=== PATIENT | male | born 1945 | race Caucasian/White ===

== ENCOUNTER 2016-12-17 12:21 | Day surgery (SDC) | payer OTHER ==
[2016-12-17 12:44] VITALS: RESP 16; TEMP 97.9
[2016-12-17 13:57] VITALS: BP 134/78; PULSE 90
--- NOTE | 2016-12-17 14:20 | US ---
EXAMINATION TYPE: US FNA thyroid DATE OF EXAM: 12/17/2016 1:58 PM COMPARISON: NONE HISTORY: Thyroid nodule, E04.1 Maximal barrier technique was utilized. Ultrasound using sterile technique. The skin overlying the no dule was localized with ultrasound and the overlying skin prepped and draped. Lidocaine used for loca l anesthesia. 5 passes with a 25-gauge needle were made into the nodule under ultrasound guidance. As pirate specimen submitted to cytology. Following the procedure hemostasis achieved. No immediate comp lication IMPRESSION: Status post ultrasound-guided fine-needle aspiration of thyroid nodule, pathology pending .
== END 2016-12-17 14:07 | disposition home or self-care (01) ==
LOC: RADPROMAIN 12:21
PROVIDERS: ATTEND Otolaryngology
DX: E04.1 Nontoxic single thyroid nodule (principal)
CPT/HCPCS: 10022; 76942; 88173; 88305

== ENCOUNTER 2017-10-07 07:00 | Emergency (ER) | payer OTHER ==
[2017-10-07 07:10] VITALS: RESP 16
--- NOTE | 2017-10-07 08:18 | ED ---
General Adult HPI - General Chief complaint: Dental/Oral Stated complaint: dental pain Time Seen by Provider: 10/07/17 08:07 Source: patient, RN notes reviewed Mode of arrival: ambulatory Limitations: no limitations - History of Present Illness Initial comments: 71 yo male presents to the emergency department with a chief complaint of swelling to the right lower jawline. Patient states that this started this morning. He is currently undergoing dental work to have dentures placed. He states that he has had a nausea vomiting. He is currently on amoxicillin for some dental work that he had done. He states that he was concerned due to swelling. He does have pain medication at home and is helping with the pain. He states he has not felt feverish but he did have a fever when they checked out front. He states is not currently having any other symptoms at this time. He was concerned due to his swelling and he thought that he should be seen. He was also concerned due to swelling. He denies any radiation into the neck. Patient denies any recent fever, chills, shortness of breath, chest pain, back pain, abdominal pain, nausea vomiting, numbness or tingling, dysuria or hematuria, constipation or diarrhea, headaches or visual changes, or any other current symptoms. - Related Data Home Medications Medication Instructions Recorded Confirmed Saw Piercy 667 mg PO DAILY 02/18/16 12/17/16 Aspirin 81 mg PO DAILY 12/06/16 12/17/16 Multivitamin with Iron 1 each PO DAILY 12/06/16 12/17/16 [Multivitamins with Iron] Urania-3 Fatty Acids/Fish Oil [Fish 1 each PO DAILY 12/06/16 12/17/16 Oil 1,000 mg Softgel] Simvastatin [Zocor] 20 mg PO HS 12/06/16 12/17/16 Previous Rx's Medication Instructions Recorded Clindamycin [Cleocin] 450 mg PO Q8HR #90 capsule 10/07/17 Allergies Allergy/AdvReac Type Severity Reaction Status Date / Time No Known Allergies Allergy Verified 10/07/17 07:10 Review of Systems ROS Statement: Those systems with pertinent positive or pertinent negative responses have been documented in the HPI. ROS Other: All systems not noted in ROS Statement are negative. Past Medical History Past Medical History: Cancer, Hyperlipidemia, Prostate Disorder Additional Past Medical History / Comment(s): hx. skin cancer, recent MRI to evaluate episodes of leg weakness recently that appear, then hard to walk for short time History of Any Multi-Drug Resistant Organisms: None Reported Past Surgical History: Hernia Repair Additional Past Surgical History / Comment(s): thyroid biopsy, sinus surgery Past Anesthesia/Blood Transfusion Reactions: No Reported Reaction Past Psychological History: No Psychological Hx Reported Smoking Status: Current every day smoker Past Alcohol Use History: Occasional Past Drug Use History: None Reported - Past Family History Mother Family Medical History: Cancer Father Family Medical History: Cancer General Exam Limitations: no limitations General appearance: alert, in no apparent distress Eye exam: Present: normal appearance, PERRL, EOMI. Absent: scleral icterus, conjunctival injection, periorbital swelling ENT exam: Present: other (Patient is swelling of the right lower jawline. There is erythema to the jawline however there is no visible abscess noted.) Neck exam: Present: normal inspection. Absent: tenderness, meningismus, lymphadenopathy Respiratory exam: Present: normal lung sounds bilaterally. Absent: respiratory distress, wheezes, rales, rhonchi, stridor Cardiovascular Exam: Present: regular rate, normal rhythm, normal heart sounds. Absent: systolic murmur, diastolic murmur, rubs, gallop, clicks Neurological exam: Present: alert, oriented X3, CN II-XII intact Psychiatric exam: Present: normal affect, normal mood Skin exam: Present: warm, dry, intact, normal color. Absent: rash Course Vital Signs 10/07/17 07:03 Temperature 100.1 F H Pulse Rate 94 Respiratory 16 Rate Blood Pressure 158/74 O2 Sat by Pulse 97 Oximetry Medical Decision Making - Medical Decision Making 71-year-old male presents for what appears to be a right-sided dental pain. At This time no visible abscess is noted. we will start patient clindamycin. We discussed stopping the amoxicillin. We discussed close follow-up with his dentist. He does have narcotics at home to help with his pain. We discussed return parameters and all patient's questions. He stated that he understood and he is agreement this plan. All questions have been answered. He will be discharged. Disposition Clinical Impression: Dental caries Disposition: HOME SELF-CARE Condition: Stable Instructions: Dental Caries (ED) Additional Instructions: Please use medication as discussed. Please follow up with family doctor if symptoms have not improved over the next two days. Please return to the emergency room if your symptoms increase or worsen or for any other concerns. Prescriptions: Clindamycin [Cleocin] 450 mg PO Q8HR #90 capsule Referrals: James Meeks DO [Primary Care Provider] - 1-2 days Time of Disposition: 08:18
[2017-10-07 08:28] VITALS: BP 136/84; PULSE 86; TEMP 99
== END 2017-10-07 08:32 | disposition home or self-care (01) ==
LOC: EC 07:00
DX: K02.9 Dental caries, unspecified (principal); R22.0 Localized swelling, mass and lump, head; R11.2 Nausea with vomiting, unspecified; E78.5 Hyperlipidemia, unspecified; N42.9 Disorder of prostate, unspecified; F17.200 Nicotine dependence, unspecified, uncomplicated; Z79.82 Long term (current) use of aspirin; Z79.899 Other long term (current) drug therapy
CPT/HCPCS: 99282

== ENCOUNTER → 2017-10-24 | Outpatient (CLI) | payer OTHER ==
--- NOTE | 2017-10-24 11:33 | US ---
EXAMINATION TYPE: US thyroid st tissue head/neck DATE OF EXAM: 10/24/2017 COMPARISON: US CLINICAL HISTORY: E04.1 Thyroid Nodule. GLAND SIZE: Right Lobe: 5.2 x 2.9 x 1.6 cm Overall Parenchyma: heterogenous Left Lobe: 5.1 x 2.3 x 1.7 cm Overall Parenchyma: heterogeneous Isthmus Thickness: 0.3 cm NODULES RIGHT: # of nodules measured on right: 3 1. 2.6 X 1.8 x 1.2 cm isoechoic mixed nodule at the upper pole with well-defined margins. This nod ule is wider than tall and shows intranodular vascularity. Prior size: 2.3 x 1.4 x 1.6 cm 2. 1.6 X 1.2 x 0.8 cm hypoechoic mixed nodule at the mid medial pole with well-defined margins; pres ent with microcalcifications. This nodule is wider than tall and shows intranodular vascularity. Prior size: 1.5 x 1.5 x 0.6 cm 3. 1.5 X 1.2 x 0.7 cm hypoechoic solid nodule at the mid lateral pole with well-defined margins. Th is nodule is wider than tall and shows intranodular vascularity. Prior size: 1.2 x 1.1 x 0.9 cm LEFT: # of nodules measured on left: 3 1. 2.2 X 1.7 x 1.5 cm isoechoic mixed nodule at the upper pole with well-defined margins; present w ith microcalcifications. This nodule is wider than tall and shows intranodular vascularity. Prior size: 2.4 x 1.6 x 1.7 cm 2. 1.2 X 0.9 x 0.8 cm hypoechoic mixed nodule at the mid pole with poorly defined margins. This nod ule is wider than tall and shows no intranodular vascularity. Prior size: 1.1 x 0.8 x 0.9 cm 3. 0.9 X 0.6 x 0.9 cm hypoechoic mixed nodule at the lower pole with poorly defined margins; present with microcalcifications. This nodule is taller than wide and shows no intranodular vascularity. Prior size: no prior ISTHMUS: # of nodules measured in the isthmus: 1 1. 0.5 X 0.4 x 0.2 cm hypoechoic mixed nodule at the lower left pole with well-defined margins. Th is nodule is wider than tall and shows intranodular vascularity. Prior size: not seen Bilateral neck scanned: inferior and medial to right thyroid gland is hyperechoic, oval, solid nodule = 0.4 x 0.6 x 0.6cm, and inferior to left thyroid is oval hyperechoic oval solid nodule = 0.7 x 0.6 x 0.3cm. These likely represent nonenlarged lymph nodes and are hyperechoic. IMPRESSION: Minimal increase in growth in the right upper pole nodule, newly identified subcentimeter left thyroi d nodule, and clearly identified subcentimeter isthmic nodule in a multinodular goiter. The right upp er pole thyroid nodule does meet size criteria for fine-needle aspiration although continued surveill ance could be performed in this patient with a recent left-sided thyroid biopsy. Alternatively [facility] thyroid scan could be performed to evaluate for cold nodule.
== END | disposition home or self-care (01) ==
LOC: RADUSWWP 09:39
DX: E04.2 Nontoxic multinodular goiter (principal)
CPT/HCPCS: 76536

== ENCOUNTER → 2017-11-14 | Outpatient (CLI) | payer OTHER ==
--- NOTE | 2017-11-15 08:38 | MR ---
EXAMINATION TYPE: MR brain wo/w con DATE OF EXAM: 11/14/2017 COMPARISON: NONE HISTORY: Lightheaded, dizziness TECHNIQUE: Multiplanar, multisequence images of the brain and brainstem is performed without and with IV contras t, utilizing 7 mL intravenous Gadavist . FINDINGS: Diffusion weighted images demonstrate no evidence of a recent infarct or other diffusion ab normality. There are changes of chronic sinusitis particularly involving the ethmoid air cells. Mild to moderate generalized degenerative change. No midline shift or mass effect. No cerebellopontine angle mass. Sella turcica has a normal appearance. Craniocervical junction mainta ined. Within the posterior nasopharynx there is a mucosal lesion which does not meet the criteria of a simp le cyst measuring 8 mm. White matter: There are approximately 20 focal areas of abnormal signal scattered throughout the white matter bilat erally. No lesions perpendicular to ventricular system. No enhancing lesions. No callosal lesions. All lesions measure less than 5 mm. IMPRESSION: 1. Nonspecific white matter changes as discussed above. Differential diagnosis would include remote m icrovascular ischemia. Demyelinating processes not excluded. 2. Changes of chronic sinusitis with an 8 mm mucosal lesion involving the posterior nasopharynx which does not meet the criteria of a simple cyst. Recommend ENT consultation.
== END | disposition home or self-care (01) ==
LOC: RADMRIMAIN 13:40
PROVIDERS: ATTEND Psychiatry & Neurology Neurology
DX: R90.82 White matter disease, unspecified (principal)
CPT/HCPCS: 82565; 70553; 36415; A9581

== ENCOUNTER 2017-12-06 12:06 | Day surgery (SDC) | payer OTHER ==
[2017-12-06 12:42] VITALS: RESP 16; TEMP 97.6
[2017-12-06 13:52] VITALS: BP 146/74; PULSE 68
--- NOTE | 2017-12-06 14:05 | US ---
ULTRASOUND GUIDED FNA THYROID BIOPSY: CLINICAL HISTORY: Request for 3 right-sided thyroid nodules FINDINGS: The procedure was explained to the patient. The risks, complications, benefits and alternatives were discussed and any questions were answered. Informed consent was obtained. Patient was placed supin e on the ultrasound table and prepped and draped in the usual sterile fashion. Utilizing a 25 gauge needle, five passes were made into the each of the 3 requested right thyroid nodules. Patient was stable throughout the procedure. Pathology is pending. All elements of maximal barrier technique were utilized. IMPRESSION: 1. Successful ultrasound guided FNA thyroid biopsy.
== END 2017-12-06 13:50 | disposition home or self-care (01) ==
LOC: RADPROMAIN 12:06
PROVIDERS: ATTEND Physician Assistant
DX: E04.1 Nontoxic single thyroid nodule (principal)
CPT/HCPCS: 10022; 36415; 76942; 88173; 88305

== ENCOUNTER → 2017-12-14 | Outpatient (CLI) | payer OTHER ==
--- NOTE | 2017-12-14 17:00 | ECHOF ---
Referral Reason:R42 Lightheadedness MEASUREMENTS -------- HEIGHT: 177.8 cm WEIGHT: 72.1 kg BP: 179/82 RVIDd: 3.4 cm (< 3.3) IVSd: 1.2 cm (0.6 - 1.1) LVIDd: 3.3 cm (3.9 - 5.3) LVPWd: 1.1 cm (0.6 - 1.1) IVSs: 1.5 cm LVIDs: 2.0 cm LVPWs: 1.4 cm LAESV Index (A-L): 22.46 ml/m Ao Diam: 3.6 cm (2.0 - 3.7) AV Cusp: 1.9 cm (1.5 - 2.6) LA Diam: 3.0 cm (2.7 - 3.8) MV EXCURSION: 18.395 mm (> 18.000) MV EF SLOPE: 104 mm/s (70 - 150) EPSS: 0.7 cm MV E Jak: 0.77 m/s MV DecT: 371 ms MV A Jak: 0.76 m/s MV E/A Ratio: 1.01 AR PHT: 426 ms RAP: 5.00 mmHg RVSP: 32.27 mmHg FINDINGS -------- Sinus rhythm. This was a technically adequate study. The left ventricular size is normal. There is mild concentric left ventricular hypertrophy. Overa ll left ventricular systolic function is normal with, an EF between 55 - 60 %. The right ventricle is mildly enlarged. Normal LA size by volume 22+/-6 ml/m2. RA appears enlarged. Aortic valve is trileaflet and is mildly thickened. There is ivkk-ao-bbmeeesq aortic regurgitation. There is no evidence of aortic stenosis. The mitral valve leaflets are mildly thickened. There is trace mitral regurgitation. Trace tricuspid regurgitation present. There is borderline pulmonary hypertension. The right vent ricular systolic pressure, as measured by Doppler, is 32.27mmHg. Trace/mild (physiologic) pulmonic regurgitation. The aortic root size is normal. Normal inferior vena cava with normal inspiratory collapse consistent with estimated right atrial pre ssure of 5 mmHg. There is no pericardial effusion. CONCLUSIONS -------- 1. Sinus rhythm. 2. This was a technically adequate study. 3. The left ventricular size is normal. 4. There is mild concentric left ventricular hypertrophy. 5. Overall left ventricular systolic function is normal with, an EF between 55 - 60 %. 6. The right ventricle is mildly enlarged. 7. Normal LA size by volume 22+/-6 ml/m2. 8. RA appears enlarged. 9. Aortic valve is trileaflet and is mildly thickened. 10. There is bxbg-jt-kofjywel aortic regurgitation. 11. The mitral valve leaflets are mildly thickened. 12. There is trace mitral regurgitation. 13. Trace tricuspid regurgitation present. 14. There is borderline pulmonary hypertension. 15. The right ventricular systolic pressure, as measured by Doppler, is 32.27mmHg. 16. Trace/mild (physiologic) pulmonic regurgitation. 17. The aortic root size is normal. 18. There is no pericardial effusion. MOLD CLAMPER: Oscar Rivera RDCS
--- NOTE | 2017-12-16 07:26 | US ---
EXAMINATION TYPE: US carotid duplex BILAT DATE OF EXAM: 12/14/2017 COMPARISON: NONE CLINICAL HISTORY: R42 Dizziness and giddiness. episodes of not being able to get words out, lighthead edness EXAM MEASUREMENTS: RIGHT: Peak Systolic Velocity (PSV) cm/sec ----- Right CCA: 98.0 ----- Right ICA: 92.1 ----- Right ECA: 133.0 ICA/CCA ratio: 0.9 RIGHT: End Diastole cm/sec ----- Right CCA: 29.8 ----- Right ICA: 31.5 ----- Right ECA: 17.7 LEFT: Peak Systolic Velocity (PSV) cm/sec ----- Left CCA: 93.3 ----- Left ICA: 85.2 ----- Left ECA: 91.0 ICA/CCA ratio: 0.9 LEFT: End Diastole cm/sec ----- Left CCA: 24.9 ----- Left ICA: 22.4 ----- Left ECA: 13.9 VERTEBRALS (direction of flow): Right Vertebral: Antegrade Left Vertebral: Antegrade Rhythm: Normal IMPRESSION: mild heterogeneous plaque seen on the right, no stenosis seen Criteria for Assigning % of Stenosis / Diameter reduction (Estimation based on the indirect measurements of the internal carotid artery velocities (ICA PSV). 1. Normal (no stenosis)=ICA PSV < 125 cm/s: ratio < 2.0: ICA EDV<40 cm/s. 2. Less than 50% stenosis=ICA PSV < 125 cm/s: ratio < 2.0: ICA EDV<40 cm/s. 3. 50 to 69% stenosis=ICA PSV of 125 to 230 cm/s: ration 2.0 ? 4.0: ICA EDV 40-100 cm/s. 4. Greater than 70% stenosis to near occlusion= ICA PSV > 230 cm/s: ratio > 4.0: ICA EDV > 100 cm/s. 5. Near occlusion= ICA PSV velocities may be low or undetectable: variable ratio and ICA EDV. 6. Total occlusion=unable to detect flow.
--- NOTE | 2017-12-26 14:33 | HM ---
HOLTER MONITOR REPORT CLINICAL INFORMATION: Patient was monitored for 24 hours. The baseline rhythm is a sinus mechanism with normal conduction. The average rate 80 beats per minute, minimum of 57, maximum 118 beats per minute. Ventricular ectopic activity was present in the form of rare single PVCs. Supraventricular ectopic activity was present in the form of rare single PACs. Symptoms of wooziness correlated with sinus mechanism. CONCLUSION: 1. Sinus mechanism baseline rhythm. 2. Rare ventricular ectopic activity. 3. Rare supraventricular ectopic activity. 4. Symptoms correlated with sinus mechanism. MMODL / IJN: [id number] /
== END | disposition home or self-care (01) ==
LOC: RADECHMAIN 12:09
PROVIDERS: ATTEND Physician Assistant
DX: I08.0 Rheumatic disorders of both mitral and aortic valves (principal); I65.21 Occlusion and stenosis of right carotid artery; R42 Dizziness and giddiness
CPT/HCPCS: 10022; 93225; 93226; 93306; 93880

== ENCOUNTER 2018-01-05 11:02 | Day surgery (SDC) | payer OTHER ==
[2017-12-30 11:23] VITALS: BMI 22.6
[~2018-01-05 11:02] MED LIST: DEXAMETHASONE SOD PHOSPHATE 10 MG/ML 1 ML VIAL IV ONE; FAMOTIDINE 20 MG/2 ML VIAL IV ONE; HYDROmorphone 0.5 MG/0.5 ML SYRINGE IVP PRN; LACTATED RINGERS 1,000 ML IV SCH; ONDANSETRON 4 MG/2 ML VIAL IVP ONE
[2018-01-05] MEDS: OXYMETAZOLINE 0.05% NASL SPRAY 1 SPRAY BOTTLE NASAL ONE ×5 (11:30→11:51)
[2018-01-05 11:33] VITALS: RESP 16
[2018-01-05] MEDS ORDERED: LIDOCAINE 1% 20 ML VIAL (10MG/ML) FOR IV START INTRADERMA ONE (11:42)
[2018-01-05] MEDS ORDERED: LIDOCAINE 1%-EPI 1:100,000 20 ML VIAL SQ ONE (13:03)
[2018-01-05] MEDS ORDERED: BUPIVACAINE (PF) 0.5% 30 ML VIAL SQ ONE (13:03)
[2018-01-05] MEDS ORDERED: fentaNYL (PF) 50 MCG/ML 2 ML AMP ONE (13:11)
[2018-01-05] MEDS ORDERED: DEXAMETHASONE SOD PHOS (MDV) 100 MG/10 ML VIAL ONE (13:11)
[2018-01-05] MEDS ORDERED: PROPOFOL 10 MG/ML 20 ML VIAL IV ONE (13:11)
[2018-01-05] MEDS ORDERED: MIDAZOLAM 2 MG/2 ML VIAL ONE (13:11)
[2018-01-05] MEDS ORDERED: SUCCINYLCHOLINE CHLORIDE 100 MG/5 ML SYR IV ONE (13:11)
[2018-01-05] MEDS ORDERED: LIDOCAINE 1% INJ 10MG/ML (20 ML MDV) ONE (13:11)
[2018-01-05] MEDS ORDERED: EPINEPHrine 1 MG/ML (MDV) 30 ML VIAL TOPICAL ONE (13:28)
[2018-01-05] MEDS ORDERED: FLUORESCEIN STRIPS 1 MG STRIP MISCELLANE ONE (13:28)
--- NOTE | 2018-01-05 13:55 | P.OP ---
Date of Procedure: 01/05/18 Preoperative Diagnosis: Nasopharyngeal mass/cystic Postoperative Diagnosis: same Procedure(s) Performed: Endoscopic biopsy/removal of nasopharyngeal mass/cyst Anesthesia: LEODANA Surgeon: Ravindra Pelletier Estimated Blood Loss (ml): 5 Pathology: other (nasopharynx) Disposition: PACU Indications for Procedure: Presented the office originally for a thyroid evaluation. The patient had a needle biopsy demonstrating a [place] four category and thyroidectomy was recommended. Lined surgery and wished to continue surveillance even though he understood the risk of thyroid cancer area nevertheless, during this evaluation and treatment we discovered a nasopharyngeal mass and biopsy was recommended. All risks, benefits, and alternative therapies were discussed. Consent was obtained and all questions were answered. Operative Findings: Nasopharyngeal cystic mass Description of Procedure: This patient was placed in the supine position a general inhalation anesthetic was administered to the patient by mask and subsequently intubated with a cuffed endotracheal tube by the department of anesthesia with a functioning IV line in place. The patient was monitored throughout the entire case by the department of anesthesia. The nose was topically decongested with Afrin nasal spray and with use of a 0 endoscope we entered the nose then following the floor the nose to the nasopharynx. There is a cystic mass in the midline of the nasopharynx and it was large and vascular. Us was removed with biopsy forceps and hemostasis was obtained with use of suction electrocoagulation. Excellent hemostasis was obtained a specimen was sent for biopsy and follow-up is scheduled for next week.
[2018-01-05 13:58] VITALS: TEMP 97.1
[2018-01-05 15:16] VITALS: BP 165/83; PULSE 85
== END 2018-01-05 15:38 | disposition home or self-care (01) ==
LOC: OR 11:02
PROVIDERS: ATTEND Otolaryngology
DX: J39.2 Other diseases of pharynx (principal); E78.00 Pure hypercholesterolemia, unspecified; H91.90 Unspecified hearing loss, unspecified ear; Z85.828 Personal history of other malignant neoplasm of skin; Z87.891 Personal history of nicotine dependence; Z79.899 Other long term (current) drug therapy; Z79.82 Long term (current) use of aspirin; Z91.09 Other allergy status, other than to drugs and biological substances
CPT/HCPCS: 88305; 42808; J0171; J2250; J1100 ×2; J2405; J2001; J3010; J0330; J2704

== ENCOUNTER → 2018-02-21 | Outpatient (CLI) | payer OTHER ==
--- NOTE | 2018-02-21 13:42 | US ---
EXAMINATION TYPE: US thyroid st tissue head/neck DATE OF EXAM: 02/21/2018 COMPARISON: Prior thyroid ultrasound October 24, 2017 CLINICAL HISTORY: E04.1 Thyroid nodule. Follow up nodules. Hx of bx- benign per patient GLAND SIZE: Right Lobe: 4.4 x 2.5 x 1.8 cm Overall Parenchyma: heterogenous Left Lobe: 4.5 x 2.0 x 1.8 cm Overall Parenchyma: heterogeneous Isthmus Thickness: 0.2 cm NODULES RIGHT: # of nodules measured on right: 4 1. 2.1 X 1.3 x 1.0 cm isoechoic mixed nodule at the upper/mid pole with well-defined margins. This nodule is taller than wide and shows intranodular vascularity. Prior size: 2.6 x 1.8 x 1.2 cm 2. 1.4 X 1.3 x 0.8 cm hypoechoic mixed nodule at the mid medial pole with well-defined margins. Thi s nodule is taller than wide and shows intranodular vascularity. Prior size: 1.4 x 1.3 x 0.8 cm 3. 1.4 X 0.8 x 0.9 cm hypoechoic nodule at the lower pole with well-defined margins. This nodule i s taller than wide and shows intranodular vascularity. Prior size: 1.5 x 1.2 x 0.7 cm 4. 0.5 X 0.6 x 0.5 cm echogenic lesion at the lower pole with well-defined margins. This nodule is wider than tall and shows no intranodular vascularity. Prior size: Not measured LEFT: # of nodules measured on left: 3 1. 2.2 X 1.4 x 1.6 cm isoechoic mixed nodule at the upper pole with well-defined margins. This nod ule is taller than wide and shows intranodular vascularity. Prior size: 2.2 x 1.7 x 1.5 cm 2. 1.1 X 1.0 x 0.9 cm hypoechoic mixed nodule at the mid pole with poorly defined margins. This nod ule is taller than wide and shows intranodular vascularity. Prior size: 1.2 x 0.9 x 0.8 cm 3. 0.9 X 0.7 x 0.9 cm hypoechoic mixed nodule at the lower left pole with well-defined margins. Thi s nodule is taller than wide and shows no intranodular vascularity. Prior size: 0.9 x 0.6 x 0.9 cm ISTHMUS: # of nodules measured in the isthmus: 1 1. 0.5 X 0.5 x 0.4 cm hypoechoic nodule left laterally with well-defined margins. This nodule is w ider than tall and shows no intranodular vascularity. Prior size: 0.5 x 0.4 x 0.2 cm Bilateral neck scanned, no evidence of lymphadenopathy. There is heterogeneous multinodular normal-sized thyroid redemonstrated without significant interval change from prior. IMPRESSION: Overall stable findings, no new greater than 1 cm suspicious solid or cystic nodules are present.
== END | disposition home or self-care (01) ==
LOC: RADUSWWP 10:58
PROVIDERS: ATTEND Otolaryngology
DX: E04.2 Nontoxic multinodular goiter (principal)
CPT/HCPCS: 76536

== ENCOUNTER 2018-02-28 13:00 | Day surgery (SDC) | payer OTHER ==
[2018-02-28 13:52] VITALS: RESP 16; TEMP 98
--- NOTE | 2018-02-28 14:41 | US ---
EXAMINATION TYPE: US FNA thyroid DATE OF EXAM: 02/28/2018 COMPARISON: NONE HISTORY: Thyroid nodule. Maximal barrier technique was utilized. After informed consent, skin overlying the lesion was locali zed with ultrasound and the overlying skin prepped and draped. Ultrasound was utilized using sterile technique. Lidocaine was used for local anesthesia. Six passes with a 25-gauge needle were made into the nodule and aspirated specimen was submitted to cytology. Following the procedure hemostasis ach ieved. No immediate complication. The patient discharged in stable condition. IMPRESSION: STATUS POST ULTRASOUND GUIDED FINE NEEDLE ASPIRATION OF THYROID NODULE, PATHOLOGY IS PEND ING. THIS PROCEDURE WAS PERFORMED BY THE UNDERSIGNED.
[2018-02-28 14:49] VITALS: BP 130/66; PULSE 88
== END 2018-02-28 14:45 | disposition home or self-care (01) ==
LOC: RADPROMAIN 13:00
PROVIDERS: ATTEND Otolaryngology
DX: E04.1 Nontoxic single thyroid nodule (principal)
CPT/HCPCS: 10022; 76942; 88173; 88305

== ENCOUNTER 2018-04-25 08:00 | Day surgery (SDC) | payer OTHER ==
[2018-04-21 12:22] VITALS: BMI 23.2
[~2018-04-25 08:00] MED LIST changes: -DEXAMETHASONE SOD PHOSPHATE 10 MG/ML 1 ML VIAL IV ONE; -FAMOTIDINE 20 MG/2 ML VIAL IV ONE; -HYDROmorphone 0.5 MG/0.5 ML SYRINGE IVP PRN; -ONDANSETRON 4 MG/2 ML VIAL IVP ONE
[2018-04-25 08:33] VITALS: RESP 16; TEMP 97.6
[2018-04-25] MEDS ORDERED: PROPOFOL 10 MG/ML 20 ML VIAL IV ONE (09:11)
--- NOTE | 2018-04-25 09:19 | P.GSHP ---
History of Present Illness H&P Date: 04/25/18 Chief Complaint: Screening colonoscopy This is a 72-year-old male referred from the [place] [facility]. Patient presents today for screening colonoscopy. Past Medical History Past Medical History: Cancer, Hyperlipidemia, Prostate Disorder Additional Past Medical History / Comment(s): hx. skin cancer, History of Any Multi-Drug Resistant Organisms: None Reported Past Surgical History: Hernia Repair Additional Past Surgical History / Comment(s): thyroid biopsy, sinus surgery, COLONOSCOPY. NODULE REMOVED FROM BACK OF THROAT WITH BX-BENIGN Past Anesthesia/Blood Transfusion Reactions: No Reported Reaction Smoking Status: Current every day smoker - Past Family History Mother Family Medical History: Cancer Father Family Medical History: Cancer Medications and Allergies Home Medications Medication Instructions Recorded Confirmed Type Saw [place] 500 mg PO HS 02/18/16 04/21/18 History Aspirin 81 mg PO HS 12/06/16 04/21/18 History Simvastatin [Zocor] 20 mg PO HS 12/06/16 04/25/18 History Ascorbic Acid [Vitamin C] 500 mg PO HS 10/07/17 04/21/18 History Cyanocobalamin [Vitamin B-12] 500 mcg PO HS 10/07/17 04/21/18 History Glucosam/Olivier-Msm1/C/Boubacar/Bosw 1 tab PO HS 10/07/17 04/21/18 History [Glucosamine-Chondroitin Tablet] Fish Oil/Dha/Epa [Fish Oil 1,200 1 each PO DAILY 11/28/17 04/21/18 History mg Fish Oil] Ubidecarenone [Co Q-10] 100 mg PO HS 04/21/18 04/21/18 History Allergies Allergy/AdvReac Type Severity Reaction Status Date / Time No Known Allergies Allergy Verified 04/25/18 08:22 Surgical - Exam Vital Signs Temp Pulse Resp BP Pulse Ox 97.6 F 72 16 157/82 98 04/25/18 08:31 04/25/18 08:31 04/25/18 08:31 04/25/18 08:31 04/25/18 08:31 - General well developed, no distress - Eyes PERRL - Abdomen Abdomen: soft, non tender Assessment and Plan Assessment: We'll perform screening colonoscopy.
[2018-04-25 10:06] VITALS: BP 135/74; PULSE 69
--- NOTE | 2018-04-25 11:11 | P.OP ---
Date of Procedure: 04/25/18 Preoperative Diagnosis: Screening colonoscopy Postoperative Diagnosis: Mild diverticulosis Procedure(s) Performed: Colonoscopy Anesthesia: MAC Surgeon: Brady Stockton Pathology: none sent Condition: stable Disposition: PACU Description of Procedure: PROCEDURE: The patient was placed on the endoscopy table in the lateral position. Digital rectal examination was performed which some mild external hemorrhoids. The prostate was symmetrical without nodules. Flexible colonoscope was then placed in the patient's anus and passed throughout the entire colon. The ileocecal valve was visualized. The cecum, ascending, transverse colon appeared normal. The descending; had mild diverticular changes. Scope summer back the rectum and this appeared normal. Scope was withdrawn for patient.
== END 2018-04-25 10:16 | disposition home or self-care (01) ==
LOC: ORWHC2ENDO 08:00
PROVIDERS: ATTEND Surgery
DX: Z12.11 Encounter for screening for malignant neoplasm of colon (principal); K57.30 Diverticulosis of large intestine without perforation or abscess without bleeding; K64.4 Residual hemorrhoidal skin tags; E78.5 Hyperlipidemia, unspecified; N42.9 Disorder of prostate, unspecified; F17.210 Nicotine dependence, cigarettes, uncomplicated; Z79.82 Long term (current) use of aspirin; Z79.899 Other long term (current) drug therapy; Z85.828 Personal history of other malignant neoplasm of skin
CPT/HCPCS: J2704; G0121; 45378

== ENCOUNTER 2018-08-20 08:38 | Inpatient (IN) | payer OTHER, MEDICARE ==
[2018-08-20] MEDS ORDERED: SODIUM CHLORIDE 0.9% 500 ML 500 ML IV STA (08:42)
[2018-08-20] MEDS ORDERED: IPRATROPIUM-ALBUTEROL 3 ML NEB INHALATION STA (08:47)
--- NOTE | 2018-08-20 08:49 | ED ---
General Adult HPI - General Chief complaint: Recheck/Abnormal Lab/Rx Stated complaint: hemoptysis Time Seen by Provider: 08/20/18 08:42 Source: patient, RN notes reviewed Mode of arrival: ambulatory Limitations: no limitations - History of Present Illness Initial comments: 72-year-old male presents emergency Department chief complaint of coughing up blood. Patient states that he has been sick since for felt like he is getting better until this morning he coughed up on 3 different episodes a large amount of blood. Patient states she does not take any blood thinners she does take aspirin daily. Patient does have a history of COPD and continues to smoke. Patient denies any fever or chills. He states he has no pain in his chest and states he otherwise feels well other than worried about the blood that he coughed up. He states it was mixed and phlegm. Patient denies any nausea, vomiting, diarrhea, melena, hematochezia. Patient states there is no headache or dizziness. Denies any recent travel, history of PE or DVT - Related Data Home Medications Medication Instructions Recorded Confirmed Saw [place] 500 mg PO HS 02/18/16 04/21/18 Aspirin 81 mg PO HS 12/06/16 04/21/18 Simvastatin [Zocor] 20 mg PO HS 12/06/16 04/25/18 Ascorbic Acid [Vitamin C] 500 mg PO HS 10/07/17 04/21/18 Cyanocobalamin [Vitamin B-12] 500 mcg PO HS 10/07/17 04/21/18 Glucosam/Olivier-Msm1/C/Boubacar/Bosw 1 tab PO HS 10/07/17 04/21/18 [Glucosamine-Chondroitin Tablet] Fish Oil/Dha/Epa [Fish Oil 1,200 1 each PO DAILY 11/28/17 04/21/18 mg Fish Oil] Ubidecarenone [Co Q-10] 100 mg PO HS 04/21/18 04/21/18 Allergies Allergy/AdvReac Type Severity Reaction Status Date / Time No Known Allergies Allergy Verified 08/20/18 08:41 Review of Systems ROS Statement: Those systems with pertinent positive or pertinent negative responses have been documented in the HPI. ROS Other: All systems not noted in ROS Statement are negative. Past Medical History Past Medical History: Cancer, Hyperlipidemia, Prostate Disorder Additional Past Medical History / Comment(s): hx. skin cancer, History of Any Multi-Drug Resistant Organisms: None Reported Past Surgical History: Hernia Repair Additional Past Surgical History / Comment(s): thyroid biopsy, sinus surgery, COLONOSCOPY. NODULE REMOVED FROM BACK OF THROAT WITH BX-BENIGN Past Anesthesia/Blood Transfusion Reactions: No Reported Reaction Past Psychological History: No Psychological Hx Reported Smoking Status: Current every day smoker Past Alcohol Use History: None Reported Past Drug Use History: None Reported - Past Family History Mother Family Medical History: Cancer Father Family Medical History: Cancer General Exam Limitations: no limitations General appearance: alert, in no apparent distress Head exam: Present: atraumatic, normocephalic, normal inspection Eye exam: Present: normal appearance, PERRL, EOMI. Absent: scleral icterus, conjunctival injection, periorbital swelling ENT exam: Present: normal exam, normal oropharynx, mucous membranes moist, TM's normal bilaterally, other (No obvious bleeding) Neck exam: Present: normal inspection, full ROM. Absent: tenderness, meningismus, lymphadenopathy Respiratory exam: Present: wheezes. Absent: normal lung sounds bilaterally, respiratory distress, rales, rhonchi, stridor Cardiovascular Exam: Present: regular rate, normal rhythm, normal heart sounds. Absent: systolic murmur, diastolic murmur, rubs, gallop, clicks GI/Abdominal exam: Present: soft, normal bowel sounds. Absent: distended, tenderness, guarding, rebound, rigid Neurological exam: Present: alert, oriented X3, CN II-XII intact Skin exam: Present: warm, dry, intact, normal color. Absent: rash Course Vital Signs 08/20/18 08/20/18 08/20/18 08:39 09:00 09:05 Temperature 98.5 F Pulse Rate 98 93 92 Respiratory 20 22 Rate Blood Pressure 147/78 146/81 O2 Sat by Pulse 96 93 L Oximetry 08/20/18 08/20/18 08/20/18 09:13 10:00 11:00 Temperature Pulse Rate 95 85 83 Respiratory 19 16 Rate Blood Pressure 140/73 137/71 O2 Sat by Pulse 96 96 Oximetry EKG Findings - EKG Comments: EKG Findings:: EKG performed at 9:15 normal sinus rhythm with a rate of 91. pr 148 QRS 94 QT/QTC 344/423 Medical Decision Making - Medical Decision Making 72-year-old male presented emergency department with chief complaint of hemoptysis. CT, x-ray, lab work obtained. Patient does have noted over the white count though he states that this is chronically elevated and has seen hematology in the past. Patient did have CT which showed bilateral pneumonia. Patient will be admitted for IV antibiotics, further evaluation. Patient is stable. No evidence of sepsis - Lab Data Result diagrams: 08/20/18 09:00 08/20/18 09:00 Lab Results 08/20/18 08/20/18 08/20/18 Range/Units 09:00 09:00 09:00 WBC 28.1 H (3.8-10.6) k/uL RBC 4.47 (4.30-5.90) m/uL Hgb 14.6 (13.0-17.5) gm/dL Hct 43.6 (39.0-53.0) % MCV 97.6 (80.0-100.0) fL MCH 32.6 (25.0-35.0) pg MCHC 33.5 (31.0-37.0) g/dL RDW 13.3 (11.5-15.5) % Plt Count 378 (150-450) k/uL Neutrophils % 80 % Lymphocytes % 10 % Monocytes % 6 % Eosinophils % 2 % Basophils % 1 % Neutrophils # 22.6 H (1.3-7.7) k/uL Lymphocytes # 2.9 (1.0-4.8) k/uL Monocytes # 1.7 H (0-1.0) k/uL Eosinophils # 0.4 (0-0.7) k/uL Basophils # 0.1 (0-0.2) k/uL PT (9.0-12.0) sec INR (<1.2) APTT (22.0-30.0) sec D-Dimer (<0.60) mg/L FEU Sodium 140 (137-145) mmol/L Potassium 4.0 (3.5-5.1) mmol/L Chloride 104 (98-107) mmol/L Carbon Dioxide 28 (22-30) mmol/L Anion Gap 8 mmol/L BUN 12 (9-20) mg/dL Creatinine 0.74 (0.66-1.25) mg/dL Est GFR (CKD-EPI)AfAm >90 (>60 ml/min/1.73 sqM) Est GFR (CKD-EPI)NonAf >90 (>60 ml/min/1.73 sqM) Glucose 115 H (74-99) mg/dL Calcium 9.4 (8.4-10.2) mg/dL Magnesium 2.0 (1.6-2.3) mg/dL Total Bilirubin 0.9 (0.2-1.3) mg/dL AST 29 (17-59) U/L ALT 28 (21-72) U/L Alkaline Phosphatase 76 (38-126) U/L Total Creatine Kinase 57 (55-170) U/L CK-MB (CK-2) 0.4 (0.0-2.4) ng/mL CK-MB (CK-2) Rel Index 0.7 Troponin I <0.012 (0.000-0.034) ng/mL Total Protein 7.0 (6.3-8.2) g/dL Albumin 4.0 (3.5-5.0) g/dL 08/20/18 Range/Units 09:00 WBC (3.8-10.6) k/uL RBC (4.30-5.90) m/uL Hgb (13.0-17.5) gm/dL Hct (39.0-53.0) % MCV (80.0-100.0) fL MCH (25.0-35.0) pg MCHC (31.0-37.0) g/dL RDW (11.5-15.5) % Plt Count (150-450) k/uL Neutrophils % % Lymphocytes % % Monocytes % % Eosinophils % % Basophils % % Neutrophils # (1.3-7.7) k/uL Lymphocytes # (1.0-4.8) k/uL Monocytes # (0-1.0) k/uL Eosinophils # (0-0.7) k/uL Basophils # (0-0.2) k/uL PT 10.1 (9.0-12.0) sec INR 0.9 (<1.2) APTT 24.9 (22.0-30.0) sec D-Dimer 0.53 (<0.60) mg/L FEU Sodium (137-145) mmol/L Potassium (3.5-5.1) mmol/L Chloride (98-107) mmol/L Carbon Dioxide (22-30) mmol/L Anion Gap mmol/L BUN (9-20) mg/dL Creatinine (0.66-1.25) mg/dL Est GFR (CKD-EPI)AfAm (>60 ml/min/1.73 sqM) Est GFR (CKD-EPI)NonAf (>60 ml/min/1.73 sqM) Glucose (74-99) mg/dL Calcium (8.4-10.2) mg/dL Magnesium (1.6-2.3) mg/dL Total Bilirubin (0.2-1.3) mg/dL AST (17-59) U/L ALT (21-72) U/L Alkaline Phosphatase (38-126) U/L Total Creatine Kinase (55-170) U/L CK-MB (CK-2) (0.0-2.4) ng/mL CK-MB (CK-2) Rel Index Troponin I (0.000-0.034) ng/mL Total Protein (6.3-8.2) g/dL Albumin (3.5-5.0) g/dL Disposition Clinical Impression: Bilateral pneumonia, Hemoptysis Disposition: ADMITTED IP TO THIS HOSP Condition: Stable Referrals: [facility],Clinic [Primary Care Provider] - 1-2 days
[2018-08-20 09:18] LABS: Basophils # (A) 0.1 k/uL (0-0.2); Basophils % (A) 1 %; Eosinophils # (A) 0.4 k/uL (0-0.7); Eosinophils % (A) 2 %; HCT 43.6 % (39.0-53.0); HGB 14.6 gm/dL (13.0-17.5); Lymphocytes # (A) 2.9 k/uL (1.0-4.8); Lymphocytes % (A) 10 %; MCH 32.6 pg (25.0-35.0); MCHC 33.5 g/dL (31.0-37.0); MCV 97.6 fL (80.0-100.0); Mean Platelet Volume 7.5; Monocytes # (A) 1.7 k/uL (0-1.0); Monocytes % (A) 6 %; Neutrophils # (A) 22.6 k/uL (1.3-7.7); Neutrophils % (A) 80 %; Platelet Count 378 k/uL (150-450); RBC 4.47 m/uL (4.30-5.90); RDW 13.3 % (11.5-15.5); WBC 28.1 k/uL (3.8-10.6)
[2018-08-20 09:26] LABS: ALT 28 U/L (21-72); AST 29 U/L (17-59); Alkaline Phosphatase 76 U/L (38-126); Anion Gap 8 mmol/L; Blood Urea Nitrogen 12 mg/dL (9-20); Calcium 9.4 mg/dL (8.4-10.2); Carbon Dioxide 28 mmol/L (22-30); Chloride 104 mmol/L (98-107); Glucose 115 mg/dL (74-99); Sodium 140 mmol/L (137-145); Total Bilirubin 0.9 mg/dL (0.2-1.3)
[2018-08-20 09:34] LABS: D-Dimer 0.53 mg/L FEU (<0.60); INR 0.9 (<1.2); Partial Thromboplastin Time 24.9 sec (22.0-30.0); Prothrombin Time 10.1 sec (9.0-12.0)
--- NOTE | 2018-08-20 09:44 | XR ---
EXAMINATION TYPE: XR chest 2V DATE OF EXAM: 08/20/2018 HISTORY: difficulty breathing. REFERENCE: Previous study dated 09/11/2014. FINDINGS: Lung volumes are mildly prominent. There is some scarring or atelectasis at the left lung b ase. Lungs are otherwise clear. Pleural spaces are clear. The heart is not enlarged. IMPRESSION: 1. CORRELATE FOR COPD. 2. SCARRING VERSUS ATELECTASIS, LEFT LUNG BASE.
[2018-08-20 09:47] LABS: Creatine Kinase 57 U/L (55-170)
[2018-08-20 09:59] LABS: Creatine Kinase MB 0.4 ng/mL (0.0-2.4); Troponin I <0.012 ng/mL (0.000-0.034)
[2018-08-20 11:09] LABS: Appearance,Urine Clear (Clear); Bilirubin,Urine Negative (Negative); Color,Urine Yellow; Glucose,Urine (UA) Negative (Negative); Ketones,Urine Negative (Negative); Protein,Urine Trace (Negative); Specific Gravity,Urine 1.017 (1.001-1.035)
[2018-08-20 11:10] LABS: Blood,Urine Negative (Negative); Leukocyte Esterase,Urine Small (Negative); Mucus,Urine Rare /hpf; Nitrite,Urine Negative (Negative); RBC,Urine 2 /hpf (0-5); Squamous Epithelial Cell,Urine <1 /hpf (0-4); Urobilinogen,Urine <2.0 mg/dL (<2.0)
--- NOTE | 2018-08-20 11:12 | CT ---
EXAMINATION TYPE: CT chest angio for PE DATE OF EXAM: 08/20/2018 COMPARISON: None. HISTORY: Hemoptysis CT DLP: 286.4 mGycm Automated exposure control for dose reduction was used. CONTRAST: CT Chest for pulmonary embolism performed with without and with IV Contrast, patient injected with 10 0 ml mL of Isovue 370. FINDINGS: There are patchy bilateral infiltrates in the perihilar region is on the right and both per ihilar regions and the left lower lobe and some questionable inflammatory change in the left lingula. There is no significant axillary, mediastinal or hilar adenopathy. There is no evidence of pulmonary embolus. The aorta is normal in caliber without evidence of dissect ion. There is no pleural or pericardial fluid. The heart is not enlarged. Within the abdomen, there is a well-defined 1 cm lesion in the medial segment of the left lobe of the liver, likely representing a cyst. There is a small hiatal hernia. Visualized portions of the upper abdomen are otherwise unremarkable. There is mild hypertrophic spondylosis within the spine. IMPRESSION: 1. This examination is negative for pulmonary embolus. 2. Patchy bilateral airspace disease likely representing pneumonia. 3. Small hiatal hernia. 4. Probable simple hepatic cyst. This could BE confirmed with ultrasound.
[2018-08-20] MEDS ORDERED: AZITHROMYCIN 500 MG in SODIUM CHLORIDE 0.9% 250 ML IVPB STA (11:39)
[2018-08-20] MEDS ORDERED: methylPREDNISolone SOD SUCCI 125 MG/2 ML VIAL IV STA (11:39)
[2018-08-20] MEDS ORDERED: PNEUMONIA PROTOCOL UTILIZED 1 EACH MISC PO PRN (11:40)
[2018-08-20] MEDS ORDERED: IPRATROPIUM-ALBUTEROL 3 ML NEB INHALATION PRN (16:47)
[2018-08-20] MEDS ORDERED: ACETAMINOPHEN TAB 500 MG TAB PO PRN (16:48)
[2018-08-20] MEDS ORDERED: TEMAZEPAM 15 MG CAP PO PRN (16:48)
[2018-08-20] MEDS ORDERED: HYDROcodone/APAP 5-325MG 1 EACH TAB PO PRN (16:48)
[2018-08-20] MEDS ORDERED: ALPRAZolam 0.25 MG TAB PO PRN (16:48)
[2018-08-20 17:23] LABS: Glucose,Whole Blood 277 mg/dL (75-99)
[2018-08-20] MEDS: NICOTINE 14MG/24HR PATCH TRANSDERM SCH (17:32)
[2018-08-20] MEDS: INSULIN ASPART 100 UNIT/ML 1 ML 10 ML VIAL SQ SCH ×2 (17:33→21:00)
[2018-08-20] MEDS: CYANOCOBALAMIN 500 MCG TAB PO SCH (17:33)
[2018-08-20] MEDS: methylPREDNISolone SOD SUCCI 125 MG/2 ML VIAL IV SCH (17:33)
--- NOTE | 2018-08-20 17:52 | HP ---
HISTORY AND PHYSICAL DATE OF SERVICE: 08/20/2018 CHIEF COMPLAINT: Cough, hemoptysis. HISTORY OF PRESENT ILLNESS: This 72-year-old gentleman with past medical history of hyperlipidemia, history of prostate disorder, history of skin cancer, history of hernia repair, history of colonoscopy, being followed by the [facility] in [place], was complaining of shortness of breath and cough for the past several days. Patient was in [facility] for [place] and was among sick family members. Subsequently, patient has significant cough and sputum and the patient also had some hemoptysis this morning which was blood mixed with sputum and the patient came to [facility]. The chest x-ray showed bilateral pneumonia. Patient admitted to the hospital for further evaluation and treatment. His is also sick according to him. The patient also had previous history of pneumonia while in the service in [place], possible viral/bacterial pneumonia at that time. Patient was pretty sick according to him. There is no history of any headache, loss of consciousness, seizures, any chest pain, palpitations, hematochezia or melena at this time. PAST MEDICAL HISTORY: History of pneumonia, history of hyperlipidemia, prostate disorder, history of herniated disc, history of colonoscopy. MEDICATIONS: Prior to admission include: 1. Aleve 220 mg daily p.r.n. 2. Zocor 20 mg q.h.s. 3. Saw palmetto 500 mg q.h.s. 4. Glucosamine 1 tab q.h.s. 5. Vitamin B12 500 mcg p.o. q.h.s. 6. Aspirin 81 mg q.h.s. 8. Vitamin C 500 mg q.h.s. ALLERGIES: None. FAMILY HISTORY: History of cancer in the family. SOCIAL HISTORY: History of smoking continued. Occasional alcohol intake. REVIEW OF SYSTEMS: ENT: No diminished vision. No diminished hearing. CARDIOVASCULAR: As mentioned earlier. RESPIRATORY: As mentioned earlier. GI no nausea or vomiting. : No dysuria. NERVOUS SYSTEM: No numbness or weakness. ALLERGY/IMMUNOLOGY: No asthma or hayfever. MUSCULOSKELETAL: As mentioned earlier. HEMATOLOGY/ONCOLOGY: No history of anemia. ENDOCRINE: No history of diabetes or hypothyroidism. CONSTITUTIONAL: As mentioned earlier. Dermatology: Negative. Rheumatology: Negative. Psychiatry: As mentioned earlier. PHYSICAL EXAMINATION: VITAL SIGNS: Pulse 81, blood pressure 133/66, respiration 18, temperature 97.2 , pulse ox 94% on room air. HEENT: Conjunctivae normal. Oral mucosa moist. NECK: No jugular venous distention. CARDIOVASCULAR: S1, S2 muffled. RESPIRATORY: Breath sounds diminished in the bases. Bilateral scattered rhonchi and crackles. Expiratory wheezing also present. ABDOMEN: Soft, nontender. Legs are no edema. No swelling. CENTRAL NERVOUS SYSTEM: Higher functions as mentioned earlier. Moves all four extremities. No focal deficits. Lymphatics: No lymph nodes palpable in the neck, axillae or groin. SKIN: No ulcer, rash or bleeding. LABS: WBC 28.9, hemoglobin 14.6, sodium 140, potassium 4. UA noted. ASSESSMENT: 1. Acute bibasilar pneumonia possibly gram-negative with hemoptysis. 2. Chronic obstructive pulmonary disease acute exacerbation. 3. Simple hepatic cyst possibly. 4. Hyperlipidemia. 5. History of prostate disorder. 6. History of skin cancer. 7. History of thyroid surgery. 8. History of hernia. 9. History nicotine dependence. RECOMMENDATIONS AND DISCUSSION: Recommend to continue current medications, management and symptomatic treatment. Otherwise, at this time, I recommend to continue current medications, management and intensive bronchodilator treatment. Smoking cessation advised. Broad-spectrum IV antibiotics. Steroids. Monitor blood sugars closely. I would also consult Dr. Harrell. Guarded prognosis because of multiple complex medical issues. Further recommendations to follow. A copy of dictation being forwarded to the [facility] and Dr. Meeks's office. MMGENNAROL / JOEYN: [id number] / MTDD
[2018-08-20] MEDS: SYMBICORT 160-4.5 MCG INHALER INHALATION SCH (19:36)
[2018-08-20] MEDS: IPRATROPIUM-ALBUTEROL 3 ML NEB INHALATION SCH (19:36)
[2018-08-20 20:14] LABS: Glucose,Whole Blood 191 mg/dL (75-99)
[2018-08-20] MEDS: ATORVASTATIN 10 MG TAB PO SCH (21:00)
[2018-08-20] MEDS: HEPARIN SODIUM,PORCINE 5,000 UNIT/ML 1 ML VIAL SQ SCH (21:00)
[2018-08-20] MEDS ORDERED: NON-FORMULARY DRUG (Glucosam/Chon-Msm1/C/Mang/Bosw [Glucosamine-Chondroitin Tablet] 1 TAB) PO SCH (21:00)
[2018-08-20] MEDS ORDERED: NON-FORMULARY DRUG (Saw Palmetto [Saw Palmetto] 500 MG) PO SCH (21:00)
[2018-08-21] MEDS: methylPREDNISolone SOD SUCCI 125 MG/2 ML VIAL IV SCH ×4 (00:33→17:13)
[2018-08-21] MEDS: IPRATROPIUM-ALBUTEROL 3 ML NEB INHALATION SCH ×4 (07:13→19:23)
[2018-08-21] MEDS: SYMBICORT 160-4.5 MCG INHALER INHALATION SCH ×2 (07:13→19:23)
[2018-08-21 07:21] LABS: Glucose,Whole Blood 179 mg/dL (75-99)
[2018-08-21] MEDS: CYANOCOBALAMIN 500 MCG TAB PO SCH (08:16)
[2018-08-21] MEDS: NICOTINE 14MG/24HR PATCH TRANSDERM SCH (08:16)
[2018-08-21] MEDS: HEPARIN SODIUM,PORCINE 5,000 UNIT/ML 1 ML VIAL SQ SCH ×2 (08:16→20:24)
[2018-08-21] MEDS: PANTOPRAZOLE 40 MG TABLET PO SCH (08:16)
[2018-08-21] MEDS: INSULIN ASPART 100 UNIT/ML 1 ML 10 ML VIAL SQ SCH ×4 (08:19→21:14)
--- NOTE | 2018-08-21 08:22 | XR ---
EXAMINATION TYPE: XR chest 2V DATE OF EXAM: 08/21/2018 COMPARISON: Prior chest x-ray 08/20/2018 HISTORY: Pneumonia and hemoptysis TECHNIQUE: Frontal and lateral views of the chest are obtained. FINDINGS: Basilar airspace disease persists on the left, patchy density in the right middle lobe. No evident pneumothorax or pleural effusion. Cardiac mediastinal silhouette, pulmonary vascularity and catarino are unchanged. IMPRESSION: Correlate for left lower and right middle lobe pneumonia. Follow-up to resolution.
[2018-08-21 10:57] LABS: Hemoglobin A1C 6.2 % (4.0-6.0)
[2018-08-21] MEDS: AZITHROMYCIN 500 MG in SODIUM CHLORIDE 0.9% 250 ML IVPB SCH (11:47)
[2018-08-21 11:48] LABS: Anion Gap 13 mmol/L; Blood Urea Nitrogen 17 mg/dL (9-20); Calcium 9.8 mg/dL (8.4-10.2); Carbon Dioxide 25 mmol/L (22-30); Chloride 103 mmol/L (98-107); Glucose 250 mg/dL (74-99); Potassium 4.4 mmol/L (3.5-5.1); Sodium 141 mmol/L (137-145)
[2018-08-21 11:51] LABS: Basophils % (A) 0 %; Eosinophils % (A) 0 %; HCT 41.6 % (39.0-53.0); HGB 13.6 gm/dL (13.0-17.5); Lymphocytes # (A) 1.4 k/uL (1.0-4.8); Lymphocytes % (A) 5 %; MCH 32.1 pg (25.0-35.0); MCHC 32.6 g/dL (31.0-37.0); MCV 98.6 fL (80.0-100.0); Mean Platelet Volume 7.3; Monocytes # (A) 0.6 k/uL (0-1.0); Monocytes % (A) 2 %; Neutrophils # (A) 23.7 k/uL (1.3-7.7); Neutrophils % (A) 92 %; Platelet Count 487 k/uL (150-450); RBC 4.22 m/uL (4.30-5.90); RDW 13.3 % (11.5-15.5); WBC 25.7 k/uL (3.8-10.6)
[2018-08-21 12:02] LABS: Glucose,Whole Blood 202 mg/dL (75-99)
[2018-08-21 17:03] LABS: Glucose,Whole Blood 230 mg/dL (75-99)
--- NOTE | 2018-08-21 17:13 | CONS ---
CONSULTATION This a pulmonary critical care consultation dated 08/21/2018. This is a 72-year-old male who presents to the emergency department with complaints of coughing up blood. The patient has not been feeling well since right around [place] time. He apparently had 3 different episodes where he was coughing up blood. The blood was mostly dark in color. Each episode produced blood that was lesser in quantity than the previous episode. The patient does not take anything that would thin the blood such as aspirin or blood thinners. He does have history of underlying COPD from more than 30 years of tobacco use at 1 pack a day. He denied any fever or chills. No chest pain or chest discomfort. Really was not feeling poorly other than coughing up the blood. He apparently was told on CT scan that he possibly had some pneumonia. Again, he did not really have any pneumonic symptoms other than coughing up blood. HOME MEDICATIONS: Include saw palmetto, aspirin, simvastatin, ascorbic acid, vitamin B12, glucosamine/chondroitin, fish oil and Coenzyme Q. ALLERGIES: Denied. MEDICAL HISTORY: Positive for hyperlipidemia, skin cancer, BPH and a previous hernia repair. In addition, he has had a thyroid biopsy, sinus surgery, colonoscopy and a benign nodule removed from the back of his throat. SOCIAL HISTORY: Positive for ongoing tobacco use. He smokes every day. He has been smoking for 30 years. Denies any alcohol use or illicit drug use. FAMILY HISTORY: Strong history of cancer. REVIEW OF SYSTEMS: CONSTITUTIONAL: Negative. NEUROLOGIC: Negative. HEENT: Negative. CARDIOVASCULAR: Negative. PULMONARY: Hemoptysis. GI/: Negative. RHEUMATOLOGIC/IMMUNOLOGIC: Negative. ENDOCRINOLOGIC/DERMATOLOGIC: Negative. Current vital signs are reviewed. His temperature is 97.7, heart rate 84, respiratory rate 16, blood pressure 135/82, mean 99, room air saturation 99%. Appears in no acute distress. HEENT examination is grossly unremarkable. Mucous membranes are moist. No oral lesions. Neck supple. Full range of motion. No adenopathy or thyromegaly. Neck veins are flat. Cardiovascular examination reveals regular rhythm rate. S1, S2 normal. No S3, S4, or murmur. Lungs reveal mostly clear breath sounds. A few scattered expiratory wheezes. No rhonchi. There is slight prolongation on forced maneuver. Abdomen is soft. Bowel sounds are heard. Extremities are intact. No cyanosis, clubbing, or edema. Skin without rash. Neurologic examination is brief but nonfocal. LABS: Reviewed. White count 25.7, hemoglobin 13.6, hematocrit 41.6, platelet count 487,000. Sodium, potassium, chloride and CO2 all normal. BUN and creatinine were 17 and 0.68. Urine is essentially negative. Influenza studies are negative. PT/INR, PTT, D-dimer all normal. Microbiology is negative. Chest x-ray is reviewed. It shows changes of COPD and some atelectasis at the left lung base. CT angiogram was negative for PE but did show some patchy airspace disease at both bases. A repeat chest x-ray dated August 21 shows possible left lower lobe pneumonia and right middle lobe pneumonia. Medications are reviewed. He is currently on azithromycin and Rocephin for his infection. He is also appropriately on nicotine patch for help with smoking cessation, Solu-Medrol 60 mg q.6 hours, DuoNebs q.i.d. and p.r.n. and Symbicort 160/4.5, 2 puffs twice a day. ASSESSMENT: 1. Chronic obstructive pulmonary disease exacerbation complicated by patchy bilateral/bibasilar pneumonia. 2. History of ongoing tobacco use with nicotine addiction. 3. History of hyperlipidemia. 4. Benign prostatic hypertrophy. 5. Skin cancer. 6. Status post thyroid biopsy. 7. Status post sinus surgery. 8. Status post hernia repair. PLAN: The patient will continue on appropriate medications. What he is on right now is very appropriate. We will continue to follow closely. Post discharge he will need to follow up in our office. He will need outpatient pulmonary function testing so that we can stage his chronic lung disease. No additional recommendations are made. Prognosis is guarded. We do debt management counselor about the importance of smoking cessation. MMODL / IJN: [id number] /
--- NOTE | 2018-08-21 18:19 | PN ---
PROGRESS NOTE DATE OF SERVICE: 08/21/2018 This 72-year-old gentleman who was admitted with acute bibasilar pneumonia also had hemoptysis. Dr. Tao is following the patient closely. No chest pain. No palpitations. No fever. EXAM: Alert and oriented x3. Pulse 98, blood pressure 150/62, respirations 16, temperature 99.2, pulse ox 94% on room air. HEENT: Conjunctivae normal. Oral mucosa moist. NECK: No jugular venous distention. No lymph node enlargement. CARDIOVASCULAR: S1, S2. RESPIRATORY: Diminished breath sounds muffled at the bases. Bilateral scattered rhonchi, expiratory wheezing, crackles. ABDOMEN: Soft, nontender. LEGS: No swelling. NERVOUS SYSTEM: No focal deficits. LAB STUDIES: WBC 24.7, glucose 202. ASSESSMENT: 1. Acute bibasilar pneumonia possibly gram-negative with hemoptysis, present on admission. 2. Chronic obstructive pulmonary disease acute exacerbation. 3. Simple hepatic cyst possibly. 4. Hyperlipidemia. 5. Increased random blood sugar with possible steroid induced diabetes mellitus. 6. History of prostate disorder. 7. History of skin cancer. 8. History of thyroid surgery. 9. History of hernia. 10.History of nicotine dependence. RECOMMENDATIONS: Recommend to continue current management and continue symptomatic treatment. Continue with broad-spectrum IV antibiotics. The cultures are negative so far. Hemoptysis seems to be improving at this time. DVT prophylaxis. Monitor blood sugars closely. Bronchodilators. We will cut down the steroids today and further recommendations to follow. Prognosis guarded. Discussed with the patient. MMODL / IJN: [id number] /
[2018-08-21] MEDS: ATORVASTATIN 10 MG TAB PO SCH (20:24)
[2018-08-21 21:00] LABS: Glucose,Whole Blood 312 mg/dL (75-99)
[2018-08-22] MEDS: methylPREDNISolone SOD SUCCI 40 MG/ML 1 ML VIAL IV SCH ×2 (00:19→08:08)
[2018-08-22 07:13] LABS: Glucose,Whole Blood 141 mg/dL (75-99)
[2018-08-22] MEDS: SYMBICORT 160-4.5 MCG INHALER INHALATION SCH (07:15)
[2018-08-22] MEDS: IPRATROPIUM-ALBUTEROL 3 ML NEB INHALATION SCH ×3 (07:15→15:32)
[2018-08-22 08:06] VITALS: RESP 16
[2018-08-22] MEDS: HEPARIN SODIUM,PORCINE 5,000 UNIT/ML 1 ML VIAL SQ SCH (08:08)
[2018-08-22] MEDS: NICOTINE 14MG/24HR PATCH TRANSDERM SCH (08:08)
[2018-08-22] MEDS: INSULIN ASPART 100 UNIT/ML 1 ML 10 ML VIAL SQ SCH ×2 (08:09→12:21)
[2018-08-22] MEDS: CYANOCOBALAMIN 500 MCG TAB PO SCH (08:09)
[2018-08-22] MEDS: PANTOPRAZOLE 40 MG TABLET PO SCH (08:09)
[2018-08-22] MEDS: AZITHROMYCIN 500 MG in SODIUM CHLORIDE 0.9% 250 ML IVPB SCH (09:40)
[2018-08-22 09:52] LABS: Basophils % (A) 0 %; Eosinophils # (A) 0.1 k/uL (0-0.7); Eosinophils % (A) 0 %; HCT 39.7 % (39.0-53.0); HGB 13.1 gm/dL (13.0-17.5); Lymphocytes # (A) 1.4 k/uL (1.0-4.8); Lymphocytes % (A) 4 %; MCH 32.7 pg (25.0-35.0); MCHC 32.9 g/dL (31.0-37.0); MCV 99.5 fL (80.0-100.0); Mean Platelet Volume 7.8; Monocytes # (A) 0.8 k/uL (0-1.0); Monocytes % (A) 2 %; Neutrophils # (A) 30.8 k/uL (1.3-7.7); Neutrophils % (A) 93 %; Platelet Count 463 k/uL (150-450); RBC 3.99 m/uL (4.30-5.90); RDW 13.3 % (11.5-15.5); WBC 33.2 k/uL (3.8-10.6)
[2018-08-22 10:13] LABS: Anion Gap 10 mmol/L; Blood Urea Nitrogen 20 mg/dL (9-20); Carbon Dioxide 26 mmol/L (22-30); Chloride 104 mmol/L (98-107); Glucose 239 mg/dL (74-99); Potassium 5.4 mmol/L (3.5-5.1); Sodium 140 mmol/L (137-145)
[2018-08-22 10:14] LABS: Calcium 9.5 mg/dL (8.4-10.2)
[2018-08-22 11:50] LABS: Glucose,Whole Blood 154 mg/dL (75-99)
--- NOTE | 2018-08-22 14:32 | P.PN ---
Subjective Progress Note Date: 08/22/18 Principal diagnosis: Chronic obstructive pulmonary disease with acute exacerbation complicated by patchy bilateral bibasilar pneumonia This is 9-year-old white male [facility] [place], was admitted on 08/20/2018 with tightness of bibasilar pneumonia, COPD exacerbation. Patient initially presented with complaints of coughing up blood. It was dark in color. Currently no further hemoptysis, no fever or chills. Patient does have underlying history of COPD, and previous tobacco use of more than [id number]. Today worsening the patient in follow-up on medical surgical floor. He is on room air, the pulse ox of 95%, his vital signs are stable, his breathing easier, certainly sounds better today, sounds are diminished, with a few scattered rhonchi. Current antibiotic coverage includes azithromycin and Rocephin. Urine and blood culture showed no growth, we were not able to collect a sputum specimen for culture. Clinically the patient is improving. Objective - Vital Signs Vital signs: Vital Signs Temp 97.9 F 08/22/18 07:00 Pulse 78 08/22/18 11:11 Resp 16 08/22/18 07:00 BP 126/78 08/22/18 07:00 Pulse Ox 95 08/22/18 13:32 Intake & Output 08/21/18 08/22/18 08/22/18 18:59 06:59 18:59 Intake Total 240 Output Total 325 Balance -85 Intake: Oral 240 Output: Urine 325 Other: # Voids 3 2 1 # Bowel Movements 0 - Exam GENERAL EXAM: Alert, pleasant, 72-year-old white male comfortable in no apparent distress. HEAD: Normocephalic/atraumatic. EYES: Normal reaction of pupils, equal size. Conjunctiva pink, sclera white. NOSE: Clear with pink turbinates. THROAT: No erythema or exudates. NECK: No masses, no JVD, no thyroid enlargement, no adenopathy. CHEST: No chest wall deformity. Symmetrical expansion. LUNGS: Breath sounds, with a few scattered rhonchi, no significant wheezing CVS: Regular rate and rhythm, normal S1 and S2, no gallops, no murmurs, no rubs ABDOMEN: Soft, nontender. No hepatosplenomegaly, normal bowel sounds, no guarding or rigidity. EXTREMITIES: No clubbing, no edema, no cyanosis, 2+ pulses and upper and lower extremities. MUSCULOSKELETAL: Muscle strength and tone normal. SPINE: No scoliosis or deformity SKIN: No rashes CENTRAL NERVOUS SYSTEM: Alert and oriented -3. No focal deficits, tone is normal in all 4 extremities. PSYCHIATRIC: Alert and oriented -3. Appropriate affect. Intact judgment and insight. - Labs CBC & Chem 7: 08/22/18 09:01 08/22/18 09:01 Labs: Abnormal Lab Results - Last 24 Hours (Table) 08/21/18 08/21/18 08/22/18 Range/Units 17:01 20:44 07:11 WBC (3.8-10.6) k/uL RBC (4.30-5.90) m/uL Plt Count (150-450) k/uL Neutrophils # (1.3-7.7) k/uL Potassium (3.5-5.1) mmol/L Glucose (74-99) mg/dL POC Glucose (mg/dL) 230 H 312 H 141 H (75-99) mg/dL 08/22/18 08/22/18 08/22/18 Range/Units 09:01 09:01 11:46 WBC 33.2 H (3.8-10.6) k/uL RBC 3.99 L (4.30-5.90) m/uL Plt Count 463 H (150-450) k/uL Neutrophils # 30.8 H (1.3-7.7) k/uL Potassium 5.4 H (3.5-5.1) mmol/L Glucose 239 H (74-99) mg/dL POC Glucose (mg/dL) 154 H (75-99) mg/dL Microbiology - Last 24 Hours (Table) 08/21/18 11:00 Urine Culture - Final Urine,Voided 08/20/18 12:24 Blood Culture - Preliminary Blood No Growth after 24 hours Assessment and Plan Plan: Assessment: #1. Acute exacerbation of chronic obstructive pulmonary disease complicated by patchy bilateral/bibasilar pneumonia #2. Hemoptysis on presentation related to underlying pneumonia, currently resolved #3. History of ongoing tobacco use with nicotine addiction #4. Hyperlipidemia #5. Benign prostatic hypertrophy #6. History of thyroid biopsy Plan: Patient is improving, breathing easier, he is on room air, no fever or chills, no further hemoptysis. from pulmonary perspective patient is stable for discharge home today. Follow up with Dr. Dr. Tao in the office in 7-10 days. Acute outpatient course of oral antibiotics, prednisone taper. Patient continues on his Qvar, and Ventolin inhaler. I performed a history & physical examination of the patient and discussed their management with my nurse practitioner, Gayla Miller. I reviewed the nurse practitioner's note and agree with the documented findings and plan of care. Lung sounds are positive for diminished, with a few scattered rhonchi. The findings and the impression was discussed with the patient. I attest to the documentation by the nurse practitioner. Time with Patient: Less than 30
[2018-08-22 15:32] VITALS: BP 161/74; PULSE 87; TEMP 98.2
[2018-08-23] MEDS ORDERED: AZITHROMYCIN 500 MG TAB PO SCH (09:00)
--- NOTE | 2018-08-23 09:28 | P.DS ---
Providers Date of admission: 08/20/18 11:40 Expected date of discharge: 08/22/18 Attending physician: Torri Pickens Consults: 08/20/18 17:09 Consult Physician Routine Consulting Provider: Anjana Harrell Consult Reason/Comments: copd Do you want consulting provider notified?: Yes Primary care physician: [facility] Course: Final Diagnoses: -Acute bibasilar pneumonia, possibly gram-negative with hemoptysis present on admission, significantly improved. Hemoptysis resolved. 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 Hemoptysis subsided. Hemoglobin 13.1. Evaluated by pulmonary. Maintained on nebulized bronchodilators, antibiotics, steroids. Significant clinical improvement. Cleared by pulmonary for discharge. Patient is being discharged home in stable condition with guarded prognosis. Microbiology 08/20/18 12:24 Blood Blood Culture - Preliminary No Growth after 48 hours 08/21/18 11:00 Urine,Voided Urine Culture - Final Exam: Gen.: Alert and oriented 3, no acute distress.CV: Regular S1 and S2.LUNGS: Bilateral bases diminished, scattered rhonchi, occasional expiratory wheeze. ABD: Soft, nontender, positive bowel sounds.NEURO: No focal deficits. The impression and plan of care has been dictated as directed. : I performed a history and examination of this patient, discussed the same with the dictator. I agree with the dictator's note ,documented as a scribe. Any additional findings or plans will be noted. Time taken: 35 minutes Patient Condition at Discharge: Stable Plan - Discharge Summary New Discharge Prescriptions: New Nicotine 14Mg/24Hr Patch [Habitrol] 1 patch TRANSDERM DAILY #30 patch predniSONE 10 mg PO DIRECTED #30 tab Cefuroxime Axetil [Ceftin] 500 mg PO BID #10 tab Albuterol Inhaler [Ventolin Hfa Inhaler] 2 puff INHALATION QID #1 inhaler Beclomethasone Dipropionate [Qvar 80 mcg] 2 puff INHALATION BID #1 inhaler Continue Saw [place] 500 mg PO HS Simvastatin [Zocor] 20 mg PO HS Aspirin 81 mg PO HS Glucosam/Olivier-Msm1/C/Boubacar/Bosw [Glucosamine-Chondroitin Tablet] 1 tab PO HS Ascorbic Acid [Vitamin C] 500 mg PO HS Cyanocobalamin [Vitamin B-12] 500 mcg PO HS Naproxen Sodium [Aleve] 220 mg PO DAILY PRN PRN Reason: Pain Discharge Medication List Saw [place] 500 mg PO HS 02/18/16 [History] Aspirin 81 mg PO HS 12/06/16 [History] Simvastatin [Zocor] 20 mg PO HS 12/06/16 [History] Ascorbic Acid [Vitamin C] 500 mg PO HS 10/07/17 [History] Cyanocobalamin [Vitamin B-12] 500 mcg PO HS 10/07/17 [History] Glucosam/[place]liv[place]-Msm1/C/Boubacar/Bosw [Glucosamine-Chondroitin Tablet] 1 tab PO HS [History] Naproxen Sodium [Aleve] 220 mg PO DAILY PRN 08/20/18 [History] Albuterol Inhaler [Ventolin Hfa Inhaler] 2 puff INHALATION QID #1 inhaler [Rx] Beclomethasone Dipropionate [Qvar 80 mcg] 2 puff INHALATION BID #1 inhaler 08/22 [Rx] Cefuroxime Axetil [Ceftin] 500 mg PO BID #10 tab 08/22/18 [Rx] Nicotine 14Mg/24Hr Patch [Habitrol] 1 patch TRANSDERM DAILY #30 patch 08/22/18 [ Rx] predniSONE 10 mg PO DIRECTED #30 tab 08/22/18 [Rx] Follow up Appointment(s)/Referral(s): Zander Tao DO [Doctor of Osteopathic Medicine] - 09/04/18 10:00 am [facility],Clinic [Primary Care Provider] - 3 Days ([facility] will call you with a appt. time and date.) Ambulatory/Diagnostic Orders: Complete Blood Count w/diff [LAB.AMB] Time Frame: 3 Days, Location: None Selected Activity/Diet/Wound Care/Special Instructions: 95% O2 sat on RA after ambublation: Pending Dr. Lopez Diet: cardiac activity as tolerated All new prescriptions has been faxed to [facility]. Discharge Disposition: HOME SELF-CARE
== END 2018-08-22 15:59 | disposition home or self-care (01) | DRG 178 ==
LOC: EC 08:38 → 4MS4W 11:40
PROVIDERS: ADMIT Hospitalist; ATTEND Hospitalist
DX: J15.6 Pneumonia due to other Gram-negative bacteria (principal); J44.0 Chronic obstructive pulmonary disease with (acute) lower respiratory infection; J44.1 Chronic obstructive pulmonary disease with (acute) exacerbation; C44.90 Unspecified malignant neoplasm of skin, unspecified; E78.5 Hyperlipidemia, unspecified; F17.200 Nicotine dependence, unspecified, uncomplicated; K76.89 Other specified diseases of liver; N40.0 Benign prostatic hyperplasia without lower urinary tract symptoms; E09.9 Drug or chemical induced diabetes mellitus without complications; T38.0X5A Adverse effect of glucocorticoids and synthetic analogues, initial encounter; Z71.6 Tobacco abuse counseling; Z85.828 Personal history of other malignant neoplasm of skin; Z80.9 Family history of malignant neoplasm, unspecified; Z87.01 Personal history of pneumonia (recurrent); Z79.1 Long term (current) use of non-steroidal anti-inflammatories (NSAID); Z79.82 Long term (current) use of aspirin; Z79.899 Other long term (current) drug therapy
CPT/HCPCS: 36415; 71046; 71275; 80048; 80053; 81001; 82550; 82553; 83036; 83605; 83735; 84484; 85025; 85379; 85610; 85730; 87040; 87086; 87502; 93005; 94640; 94760

== ENCOUNTER → 2019-01-19 | Outpatient (CLI) | payer OTHER ==
--- NOTE | 2019-01-19 15:36 | US ---
EXAMINATION TYPE: US thyroid st tissue head/neck DATE OF EXAM: 01/19/2019 COMPARISON: 02/21/2018 thyroid ultrasound with fine-needle aspiration performed on 02/28/2018 of the ri ght thyroid nodule within the mid gland CLINICAL HISTORY: E04.1 thyroid nodule. Follow up thyroid nodules GLAND SIZE: Right Lobe: 4.6 x 1.8 x 2.4 cm Overall Parenchyma: heterogenous Left Lobe: 4.6 x 1.8 x 2.0 cm Overall Parenchyma: heterogeneous Isthmus Thickness: 0.3 cm NODULES RIGHT: # of nodules measured on right: 4 1. 2.2 X 1.1 x 1.3 cm isoechoic mixed nodule at the upper/mid pole with well-defined margins; . Th is nodule is taller than wide and shows intranodular vascularity. Prior size: 2.1 x 1.0 x 1.3 cm 2. 1.4 X 0.8 x 1.4 cm hypoechoic mixed nodule at the mid medial pole with well-defined margins; . T his nodule is taller than wide and shows intranodular vascularity. Prior size: 1.4 x 0.8 x 1.3 cm 3. 1.4 X 0.9 x 1.1 cm hypoechoic nodule at the lower pole with well-defined margins; . This nodule is taller than wide and shows intranodular vascularity. Prior size: 1.4 x 0.8 x 0.9 cm 4. 0.5 X 0.6 x 0.6 cm echogenic nodule at the lower pole with well-defined margins; . This nodule i s wider than tall and shows no intranodular vascularity. Prior size: 0.5 x 0.6 x 0.5 cm LEFT: # of nodules measured on left: 2 1. 2.2 X 1.3 x 1.6 cm isoechoic mixed nodule at the upper pole with well-defined margins; . This n odule is taller than wide and shows intranodular vascularity. Prior size: 2.2 x 1.4 x 1.6 cm 2. 1.1 X 0.9 x 0.8 cm hypoechoic mixed nodule at the lower pole with well-defined margins; . This n odule is wider than tall and shows intranodular vascularity. Prior size: 0.9 x 0.7 x 0.9 cm ISTHMUS: # of nodules measured in the isthmus: 1 1. 0.5 X 0.3 x 0.7 cm hypoechoic nodule at the left laterally pole with well-defined margins; . Th is nodule is wider than tall and shows intranodular vascularity. Prior size: 0.5 x 0.4 x 0.5 cm Bilateral neck scanned, no evidence of lymphadenopathy. IMPRESSION: Overall similar size of the numerous bilateral thyroid nodules with prior biopsy noted of the right m id pole thyroid nodule. No significant interval growth or new suspicious thyroid nodule. Overall mult inodular goiter.
== END | disposition home or self-care (01) ==
LOC: RADUSWWP 14:17
DX: E04.2 Nontoxic multinodular goiter (principal)
CPT/HCPCS: 76536

== ENCOUNTER 2022-05-14 03:59 | Emergency (ER) | payer OTHER ==
[2022-05-14 04:07] VITALS: PULSE 74; RESP 15; TEMP 98.3
[2022-05-14] MEDS ORDERED: diazePAM 5 MG TAB PO STA (04:27)
[2022-05-14] MEDS ORDERED: Acetaminophen-Codeine 300-30mg TAB PO STA (04:27)
[2022-05-14] MEDS ORDERED: ACET/COD 300 MG/30 MG STARTER PACK 6 TAB BTL PO STA (04:28)
--- NOTE | 2022-05-14 04:28 | ED ---
Extremity Problem HPI - General Chief complaint: Extremity Problem,Nontraumatic Stated complaint: Shoulder pain left Time Seen by Provider: 05/14/22 04:01 Source: EMS, RN notes reviewed, old records reviewed Mode of arrival: EMS Limitations: no limitations - History of Present Illness Initial comments: This 76-year-old male to the emergency department for evaluation. Patient has shoulder pain. Acute on chronic pain. Patient's here for pain control. No trauma no fevers no other complaints MD Complaint: extremity pain, extremity swelling, joint pain -: days(s) Location: left, upper extremity History of Same: Yes -: Yes myalgia, Yes arthralgia Radiation: proximal Severity scale (1-10): 2 Quality: burning Consistency: constant Improves with: cold therapy Worsens with: nothing Associated Symptoms: denies other symptoms - Related Data Home Medications Medication Instructions Recorded Confirmed Saw [place] 500 mg PO HS 02/18/16 08/20/18 Aspirin 81 mg PO HS 12/06/16 08/20/18 Simvastatin [Zocor] 20 mg PO HS 12/06/16 08/20/18 Ascorbic Acid [Vitamin C] 500 mg PO HS 10/07/17 08/20/18 Cyanocobalamin [Vitamin B-12] 500 mcg PO HS 10/07/17 08/20/18 Glucosam/[place]-Msm1/C/Boubacar/Bosw 1 tab PO HS 10/07/17 08/20/18 [Glucosamine-Chondroitin Tablet] Naproxen Sodium [Aleve] 220 mg PO DAILY PRN 08/20/18 08/20/18 Previous Rx's Medication Instructions Recorded Albuterol Inhaler [Ventolin Hfa 2 puff INHALATION QID #1 inhaler 08/22/18 Inhaler] Beclomethasone Dipropionate [Qvar 2 puff INHALATION BID #1 inhaler 08/22/18 80 mcg] Nicotine 14Mg/24Hr Patch [Habitrol] 1 patch TRANSDERM DAILY #30 patch 08/22/18 cefUROXime axetiL [Ceftin] 500 mg PO BID #10 tab 08/22/18 predniSONE 10 mg PO DIRECTED #30 tab 08/22/18 Allergies Allergy/AdvReac Type Severity Reaction Status Date / Time No Known Allergies Allergy Verified 05/14/22 04:05 Review of Systems ROS Statement: Those systems with pertinent positive or pertinent negative responses have been documented in the HPI. ROS Other: All systems not noted in ROS Statement are negative. Past Medical History Past Medical History: Cancer, Hyperlipidemia, Prostate Disorder Additional Past Medical History / Comment(s): hx. skin cancer, History of Any Multi-Drug Resistant Organisms: None Reported Past Surgical History: Hernia Repair Additional Past Surgical History / Comment(s): thyroid biopsy, sinus surgery, COLONOSCOPY. NODULE REMOVED FROM BACK OF THROAT WITH BX-BENIGN Past Anesthesia/Blood Transfusion Reactions: No Reported Reaction Past Psychological History: No Psychological Hx Reported Past Alcohol Use History: None Reported Past Drug Use History: None Reported - Past Family History Mother Family Medical History: Cancer Father Family Medical History: Cancer General Exam General appearance: alert, in no apparent distress Head exam: Present: atraumatic, normocephalic, normal inspection Eye exam: Present: normal appearance, PERRL, EOMI. Absent: scleral icterus, conjunctival injection, periorbital swelling ENT exam: Present: normal exam, mucous membranes moist Neck exam: Present: normal inspection. Absent: tenderness, meningismus, lymphadenopathy Respiratory exam: Present: normal lung sounds bilaterally. Absent: respiratory distress, wheezes, rales, rhonchi, stridor Cardiovascular Exam: Present: regular rate, normal rhythm, normal heart sounds. Absent: systolic murmur, diastolic murmur, rubs, gallop, clicks GI/Abdominal exam: Present: soft, normal bowel sounds. Absent: distended, tenderness, guarding, rebound, rigid Extremities exam: Present: normal inspection, full ROM, normal capillary refill. Absent: tenderness, pedal edema, joint swelling, calf tenderness Back exam: Present: normal inspection Neurological exam: Present: alert, oriented X3, CN II-XII intact Psychiatric exam: Present: normal affect, normal mood Skin exam: Present: warm, dry, intact, normal color. Absent: rash Course Vital Signs 05/14/22 05/14/22 04:05 04:41 Temperature 98.3 F Pulse Rate 74 74 Respiratory 15 15 Rate Blood Pressure 134/71 129/74 O2 Sat by Pulse 99 99 Oximetry - Reevaluation(s) Reevaluation #1: Medical record is reviewed Symptoms have been improved here in the ER Patient informed results and questions answered Medical Decision Making - Medical Decision Making 76 male to the emergency room for shoulder pain. Chest pain. Patient is no acute findings, can be discharged Disposition Clinical Impression: Chest pain Disposition: HOME SELF-CARE Condition: Good Instructions (If sedation given, give patient instructions): Chest Pain (ED) Is patient prescribed a controlled substance at d/c from ED?: No Referrals: [facility],Clinic [Primary Care Provider] - 1-2 days
[2022-05-14 04:42] VITALS: BP 129/74
== END 2022-05-14 04:42 | disposition home or self-care (01) ==
LOC: EC 03:59
DX: R07.9 Chest pain, unspecified (principal); E78.5 Hyperlipidemia, unspecified; Z79.51 Long term (current) use of inhaled steroids; Z79.82 Long term (current) use of aspirin; Z79.899 Other long term (current) drug therapy
CPT/HCPCS: 99283

== ENCOUNTER 2022-05-17 09:44 | Emergency (ER) | payer OTHER, MEDICARE ==
[2022-05-17 09:52] VITALS: RESP 18
[2022-05-17] MEDS ORDERED: KETOROLAC 15 MG/ML 1 ML VIAL IVP STA (10:38)
[2022-05-17 10:54] LABS: Basophils # (A) 0.1 k/uL (0-0.2); Basophils % (A) 1 %; Eosinophils # (A) 0.3 k/uL (0-0.7); Eosinophils % (A) 2 %; HCT 45.6 % (39.0-53.0); HGB 15.2 gm/dL (13.0-17.5); Lymphocytes # (A) 2.7 k/uL (1.0-4.8); Lymphocytes % (A) 19 %; MCH 33.4 pg (25.0-35.0); MCHC 33.3 g/dL (31.0-37.0); MCV 100.3 fL (80.0-100.0); Mean Platelet Volume 7.7; Monocytes # (A) 0.9 k/uL (0-1.0); Monocytes % (A) 6 %; Neutrophils # (A) 10.1 k/uL (1.3-7.7); Neutrophils % (A) 71 %; Platelet Count 401 k/uL (150-450); RBC 4.55 m/uL (4.30-5.90); RDW 12.6 % (11.5-15.5); WBC 14.2 k/uL (3.8-10.6)
[2022-05-17 10:57] LABS: Appearance,Urine Clear (Clear); Bilirubin,Urine Negative (Negative); Blood,Urine Negative (Negative); Color,Urine Colorless; Glucose,Urine (UA) Negative (Negative); Ketones,Urine Negative (Negative); Leukocyte Esterase,Urine Large (Negative); Mucus,Urine Rare /hpf; Nitrite,Urine Negative (Negative); PH, Urine 6.5 (5.0-8.0); Protein,Urine Negative (Negative); RBC,Urine 1 /hpf (0-5); Specific Gravity,Urine 1.005 (1.001-1.035); Urobilinogen,Urine <2.0 mg/dL (<2.0); WBC,Urine 30 /hpf (0-5)
--- NOTE | 2022-05-17 11:03 | XR ---
EXAMINATION TYPE: XR shoulder complete BILAT DATE OF EXAM: 05/17/2022 10:57 AM INDICATION: Patient age:Male; 76 years old; Reason for study: pain; COMPARISON: 09/11/2014 TECHNIQUE: The bilateral shoulders were examined in AP, internally rotated and scapular Y projections . . FINDINGS: No evidence of acute osseous pathology, joint dislocation, or soft tissue swelling. The remaining por tions of the visualized chest are unremarkable. Mild osteophyte formation of the glenoids bilaterally. IMPRESSION: 1. No acute osseous pathology. 2. Minimal degeneration changes of the shoulders.
[2022-05-17 11:09] LABS: ALT 20 U/L (4-49); AST 27 U/L (17-59); African American GFR (CKD) >90 (>60 ml/min/1.73 sqM); Albumin 4.4 g/dL (3.5-5.0); Alkaline Phosphatase 86 U/L (38-126); Anion Gap 11 mmol/L; Blood Urea Nitrogen 13 mg/dL (9-20); Calcium 9.8 mg/dL (8.4-10.2); Carbon Dioxide 30 mmol/L (22-30); Chloride 97 mmol/L (98-107); Creatine Kinase 71 U/L (55-170); Glucose 128 mg/dL (74-99); Non-African American GFR(CKD) >90 (>60 ml/min/1.73 sqM); Potassium 4.7 mmol/L (3.5-5.1); Sodium 138 mmol/L (137-145); Total Bilirubin 0.7 mg/dL (0.2-1.3); Total Protein 7.2 g/dL (6.3-8.2)
[2022-05-17] MEDS ORDERED: cefTRIAXone IN SWFI 1,000 MG/10 ML SYRINGE IVP STA (12:40)
[2022-05-17] MEDS ORDERED: methylPREDNISolone SOD SUCCI 125 MG/2 ML VIAL IV STA (12:40)
--- NOTE | 2022-05-17 12:43 | ED ---
General Adult HPI - General Chief complaint: Back Pain/Injury Stated complaint: shoulder, arm & hip pain-revisit Time Seen by Provider: 05/17/22 10:26 Source: patient, RN notes reviewed Mode of arrival: ambulatory Limitations: no limitations - History of Present Illness Initial comments: 76-year-old male presents emergency Department chief complaint of joint pain, not feeling well. Patient states a left shoulder pain has progressively right shoulder but seems severity. Patient states that he's had some lower abdominal pain, body aches, joint pain not feeling well he does admit approximate one week ago had recent change of his simvastatin was states this was after his shoulder pain and joint pain started. Patient states he has a chronic elevated white count which she seen hematology for last 20 years. Patient denies any trauma denies any overuse no recent injuries. - Related Data Home Medications Medication Instructions Recorded Confirmed Ascorbic Acid [Vitamin C] 500 mg PO DAILY 10/07/17 05/17/22 Acetaminophen [Tylenol Arthritis] 650 mg PO Q6H 05/17/22 05/17/22 Cyclobenzaprine [Flexeril] 10 mg PO HS 05/17/22 05/17/22 Escitalopram [Lexapro] 10 mg PO W/LUNCH 05/17/22 05/17/22 [place]-3/Dha/Epa/Fish Oil [Fish Oil 1 cap PO DAILY 05/17/22 05/17/22 1,000 mg Softgel] Simvastatin [Zocor] 40 mg PO DAILY 05/17/22 05/17/22 Previous Rx's Medication Instructions Recorded Cephalexin [Keflex] 500 mg PO Q8HR #21 cap 05/17/22 predniSONE 50 mg PO DAILY #4 tab 05/17/22 Allergies Allergy/AdvReac Type Severity Reaction Status Date / Time No Known Allergies Allergy Verified 05/17/22 12:20 Review of Systems ROS Statement: Those systems with pertinent positive or pertinent negative responses have been documented in the HPI. ROS Other: All systems not noted in ROS Statement are negative. Past Medical History Past Medical History: Cancer, Hyperlipidemia, Prostate Disorder Additional Past Medical History / Comment(s): hx. skin cancer, History of Any Multi-Drug Resistant Organisms: None Reported Past Surgical History: Hernia Repair Additional Past Surgical History / Comment(s): thyroid biopsy, sinus surgery, C OLONOSCOPY. NODULE REMOVED FROM BACK OF THROAT WITH BX-BENIGN Past Anesthesia/Blood Transfusion Reactions: No Reported Reaction Past Psychological History: No Psychological Hx Reported Smoking Status: Current every day smoker Past Alcohol Use History: Occasional Past Drug Use History: None Reported - Past Family History Mother Family Medical History: Cancer Father Family Medical History: Cancer General Exam Limitations: no limitations General appearance: alert, in no apparent distress Head exam: Present: atraumatic, normocephalic, normal inspection Eye exam: Present: normal appearance, PERRL, EOMI. Absent: scleral icterus, conjunctival injection, periorbital swelling ENT exam: Present: normal exam, normal oropharynx, mucous membranes moist Neck exam: Present: normal inspection, full ROM. Absent: tenderness, m eningismus, lymphadenopathy Respiratory exam: Present: normal lung sounds bilaterally. Absent: respiratory distress, wheezes, rales, rhonchi, stridor Cardiovascular Exam: Present: regular rate, normal rhythm, normal heart sounds. Absent: systolic murmur, diastolic murmur, rubs, gallop, clicks GI/Abdominal exam: Present: soft, normal bowel sounds. Absent: distended, tenderness, guarding, rebound, rigid Extremities exam: Present: normal inspection, full ROM, normal capillary refill. Absent: tenderness, pedal edema, joint swelling, calf tenderness Back exam: Absent: CVA tenderness (R), CVA tenderness (L) Neurological exam: Present: alert, oriented X3 Skin exam: Present: warm, dry, intact, normal color. Absent: rash Course Vital Signs 05/17/22 05/17/22 05/17/22 09:47 10:40 12:15 Temperature 97.6 F Pulse Rate 82 77 74 Respiratory 18 18 18 Rate Blood Pressure 163/72 132/77 130/71 O2 Sat by Pulse 98 97 97 Oximetry Medical Decision Making - Medical Decision Making 76-year-old presented for joint pain, not feeling well. Patient does have some evidence urinary tract infection. Patient does have probably joint pain may be referred first to rheumatology we given steroids, antibiotics return parameters were discussed. - Lab Data Result diagrams: 05/17/22 10:43 05/17/22 10:43 Lab Results 05/17/22 05/17/22 05/17/22 Range/Units 10:35 10:43 10:43 WBC 14.2 H (3.8-10.6) k/uL RBC 4.55 (4.30-5.90) m/uL Hgb 15.2 (13.0-17.5) gm/dL Hct 45.6 (39.0-53.0) % MCV 100.3 H (80.0-100.0) fL MCH 33.4 (25.0-35.0) pg MCHC 33.3 (31.0-37.0) g/dL RDW 12.6 (11.5-15.5) % Plt Count 401 (150-450) k/uL MPV 7.7 Neutrophils % 71 % Lymphocytes % 19 % Monocytes % 6 % Eosinophils % 2 % Basophils % 1 % Neutrophils # 10.1 H (1.3-7.7) k/uL Lymphocytes # 2.7 (1.0-4.8) k/uL Monocytes # 0.9 (0-1.0) k/uL Eosinophils # 0.3 (0-0.7) k/uL Basophils # 0.1 (0-0.2) k/uL Sodium 138 (137-145) mmol/L Potassium 4.7 (3.5-5.1) mmol/L Chloride 97 L (98-107) mmol/L Carbon Dioxide 30 (22-30) mmol/L Anion Gap 11 mmol/L BUN 13 (9-20) mg/dL Creatinine 0.70 (0.66-1.25) mg/dL Est GFR (CKD-EPI)AfAm >90 (>60 ml/min/1.73 sqM) Est GFR (CKD-EPI)NonAf >90 (>60 ml/min/1.73 sqM) Glucose 128 H (74-99) mg/dL Calcium 9.8 (8.4-10.2) mg/dL Magnesium 2.0 (1.6-2.3) mg/dL Total Bilirubin 0.7 (0.2-1.3) mg/dL AST 27 (17-59) U/L ALT 20 (4-49) U/L Alkaline Phosphatase 86 (38-126) U/L Creatine Kinase 71 (55-170) U/L Troponin I (0.000-0.034) ng/mL C-Reactive Protein 4.0 H (<1.0) mg/dL Total Protein 7.2 (6.3-8.2) g/dL Albumin 4.4 (3.5-5.0) g/dL Urine Color Colorless Urine Appearance Clear (Clear) Urine pH 6.5 (5.0-8.0) Ur Specific [place] 1.005 (1.001-1.035) Urine Protein Negative (Negative) Urine Glucose (UA) Negative (Negative) Urine Ketones Negative (Negative) Urine Blood Negative (Negative) Urine Nitrite Negative (Negative) Urine Bilirubin Negative (Negative) Urine Urobilinogen <2.0 (<2.0) mg/dL Ur Leukocyte Esterase Large H (Negative) Urine RBC 1 (0-5) /hpf Urine WBC 30 H (0-5) /hpf Urine Mucus Rare H (None) /hpf 05/17/22 Range/Units 10:43 WBC (3.8-10.6) k/uL RBC (4.30-5.90) m/uL Hgb (13.0-17.5) gm/dL Hct (39.0-53.0) % MCV (80.0-100.0) fL MCH (25.0-35.0) pg MCHC (31.0-37.0) g/dL RDW (11.5-15.5) % Plt Count (150-450) k/uL MPV Neutrophils % % Lymphocytes % % Monocytes % % Eosinophils % % Basophils % % Neutrophils # (1.3-7.7) k/uL Lymphocytes # (1.0-4.8) k/uL Monocytes # (0-1.0) k/uL Eosinophils # (0-0.7) k/uL Basophils # (0-0.2) k/uL Sodium (137-145) mmol/L Potassium (3.5-5.1) mmol/L Chloride (98-107) mmol/L Carbon Dioxide (22-30) mmol/L Anion Gap mmol/L BUN (9-20) mg/dL Creatinine (0.66-1.25) mg/dL Est GFR (CKD-EPI)AfAm (>60 ml/min/1.73 sqM) Est GFR (CKD-EPI)NonAf (>60 ml/min/1.73 sqM) Glucose (74-99) mg/dL Calcium (8.4-10.2) mg/dL Magnesium (1.6-2.3) mg/dL Total Bilirubin (0.2-1.3) mg/dL AST (17-59) U/L ALT (4-49) U/L Alkaline Phosphatase (38-126) U/L Creatine Kinase (55-170) U/L Troponin I <0.012 (0.000-0.034) ng/mL C-Reactive Protein (<1.0) mg/dL Total Protein (6.3-8.2) g/dL Albumin (3.5-5.0) g/dL Urine Color Urine Appearance (Clear) Urine pH (5.0-8.0) Ur Specific [place] (1.001-1.035) Urine Protein (Negative) Urine Glucose (UA) (Negative) Urine Ketones (Negative) Urine Blood (Negative) Urine Nitrite (Negative) Urine Bilirubin (Negative) Urine Urobilinogen (<2.0) mg/dL Ur Leukocyte Esterase (Negative) Urine RBC (0-5) /hpf Urine WBC (0-5) /hpf Urine Mucus (None) /hpf Disposition Clinical Impression: Arthralgia of multiple joints, UTI (urinary tract infection) Disposition: HOME SELF-CARE Condition: Stable Instructions (If sedation given, give patient instructions): Arthralgia (ED) Additional Instructions: Please return to the Emergency Department if symptoms worsen or any other concerns. Prescriptions: Cephalexin [Keflex] 500 mg PO Q8HR #21 cap predniSONE 50 mg PO DAILY #4 tab Is patient prescribed a controlled substance at d/c from ED?: No Referrals: [facility],Clinic [Primary Care Provider] - 1-2 days Yamliet Vázquez MD [STAFF PHYSICIAN] - 1-2 days Time of Disposition: 12:42
[2022-05-17 13:12] VITALS: BP 139/74; PULSE 71; TEMP 97.5
[2022-05-18 15:04] LABS: C. trachomatis,PCR Negative (Neg,Equiv); Chlamydia trachomatis Source Urine; N. gonorrhoeae,PCR Negative (Neg,Equiv); Neisseria Source Urine
== END 2022-05-17 13:10 | disposition home or self-care (01) ==
LOC: EC 09:44
DX: M25.512 Pain in left shoulder (principal); M25.50 Pain in unspecified joint; N39.0 Urinary tract infection, site not specified; E78.5 Hyperlipidemia, unspecified; F17.200 Nicotine dependence, unspecified, uncomplicated; Z79.899 Other long term (current) drug therapy; R10.30 Lower abdominal pain, unspecified
CPT/HCPCS: 36415; 93005; 80053; 82550; 83735; 84484; 85025; 86140; 81001; 87491; 87591; 87086; 73030; 99284; 96374; 96375 ×2; J2930; J0696; J1885

== ENCOUNTER 2022-12-31 08:48 | Day surgery (SDC) | payer MEDICARE, OTHER ==
[2022-12-31 09:31] VITALS: RESP 16
[2022-12-31 09:42] LABS: Glucose,Whole Blood 129 mg/dL (70-110)
[2022-12-31] MEDS ORDERED: HYDROCORTISONE SUCCINATE 100 MG/2 ML VIAL IVP ONE (09:46)
[2022-12-31] MEDS: LACTATED RINGERS 1,000 ML IV SCH ×2 (09:46→11:20)
[2022-12-31] MEDS ORDERED: LIDOCAINE 2% INJ 20 MG/ML (2 ML VIAL) ONE (11:34)
[2022-12-31] MEDS ORDERED: PROPOFOL 10 MG/ML 20 ML VIAL IV ONE (11:34)
--- NOTE | 2022-12-31 12:00 | P.PCN ---
Date of Procedure: 12/31/22 Procedure(s) Performed: BRIEF HISTORY: Patient is a 77-year-old pleasant pleasant white male scheduled for an elective colonoscopy as a part of evaluation of prior history of colon polyps. Last colonoscopy was 5 years ago. PROCEDURE PERFORMED: Colonoscopy with biopsy. PREOPERATIVE DIAGNOSIS: History of colon polyps. IV sedation per Anesthesia. PROCEDURE: After informed consent was obtained, the patient, was brought into the endoscopy unit. IV sedation was administered by Anesthesia under continuous monitoring. Digital rectal examination was normal. Initially the Olympus CF-160 flexible video colonoscope was then inserted in the rectum, gradually advanced into the cecum without any difficulty. Careful examination was performed as the scope was gradually being withdrawn. Ileocecal valve and the appendiceal orifice were visualized and appeared normal. Prep was excellent. Mucosa of the cecum, ascending colon, transverse colon, descending colon, appeared normal. In the sigmoid: There was a 3 mm sessile polyp removed by cold biopsy. Scattered sigmoid diverticulosis seen. Rest of the sigmoid colon, and rectum appeared normal. Retroflexion was performed in the rectum and small internal hemorrhoids were seen. The patient tolerated the procedure well. IMPRESSION: 3 mm sigmoid polyp status post cold biopsy Scattered left-sided diverticulosis Small internal hemorrhoids RECOMMENDATIONS: Findings of this examination were discussed with the patient as well as his family. He was advised to follow with the biopsy results. If the biopsy reveals adenoma he can have a repeat colonoscopy in 5 years.
[2022-12-31 12:36] VITALS: BP 124/71; PULSE 78
== END 2022-12-31 12:39 | disposition home or self-care (01) ==
LOC: ORWHC2ENDO 08:48
PROVIDERS: ATTEND Internal Medicine Gastroenterology
DX: Z12.11 Encounter for screening for malignant neoplasm of colon (principal); K63.5 Polyp of colon; K57.30 Diverticulosis of large intestine without perforation or abscess without bleeding; K64.8 Other hemorrhoids; Z86.010 Personal history of colon polyps; Z79.899 Other long term (current) drug therapy; E78.5 Hyperlipidemia, unspecified; J44.9 Chronic obstructive pulmonary disease, unspecified; F32.A Depression, unspecified
CPT/HCPCS: 45380; J1720; J2704; J2001; 88305

== ENCOUNTER 2023-04-13 10:49 | Emergency (ER) | payer OTHER ==
[2023-04-13 11:23] VITALS: TEMP 97.5
[2023-04-13] MEDS ORDERED: IPRATROPIUM-ALBUTEROL 3 ML NEB INHALATION STA (11:29)
--- NOTE | 2023-04-13 11:30 | ED ---
URI HPI - General Chief Complaint: Upper Respiratory Infection Stated Complaint: UPPER RESPIRATORY, PNEUMONIA Time Seen by Provider: 04/13/23 11:23 Source: patient, RN notes reviewed Mode of arrival: ambulatory Limitations: no limitations - History of Present Illness Initial Comments: 77-year-old male presents emergency Department chief complaint of cough and cold-like symptoms. Patient states she's been sick for 1 week he states he has a mildly productive cough, denies chest pain or shortness of breath. He does complain of subjective fever, body aches. Patient states that he went to visit his kids in which his grandkids were sick. Patient denies any GI symptoms including nausea vomiting diarrhea constipation. He states he just feels achy, tired. - Related Data Home Medications Medication Instructions Recorded Confirmed Escitalopram [Lexapro] 10 mg PO W/LUNCH 05/17/22 12/28/22 Kingsley-3/Dha/Epa/Fish Oil [Fish Oil 1 cap PO DAILY 05/17/22 12/28/22 1,000 mg Softgel] Simvastatin [Zocor] 40 mg PO DAILY 05/17/22 12/28/22 Calcium(Unk) 500 mg PO DAILY 12/28/22 12/28/22 Methotrexate (Unk) 10 mg PO WEEKLY 12/28/22 12/28/22 Vit D3(Unk) 1 tab PO DAILY 12/28/22 12/28/22 predniSONE 5 mg PO DAILY 12/28/22 12/28/22 Previous Rx's Medication Instructions Recorded Azithromycin [Zithromax Z Pack] 0 tab PO DIRECTED #6 tab 04/13/23 predniSONE 50 mg PO DAILY #5 tab 04/13/23 Allergies Allergy/AdvReac Type Severity Reaction Status Date / Time No Known Allergies Allergy Verified 04/13/23 11:24 Review of Systems ROS Statement: Those systems with pertinent positive or pertinent negative responses have been documented in the HPI. ROS Other: All systems not noted in ROS Statement are negative. Past Medical History Past Medical History: Cancer, COPD, Hyperlipidemia, Prostate Disorder Additional Past Medical History / Comment(s): hx. 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 NODULE REMOVED FROM BACK OF THROAT WITH BX-BENIGN Past Anesthesia/Blood Transfusion Reactions: No Reported Reaction Past Psychological History: No Psychological Hx Reported Smoking Status: Current every day smoker - Past Family History Mother Family Medical History: Cancer Father Family Medical History: Cancer General Exam Limitations: no limitations General appearance: alert, in no apparent distress Head exam: Present: atraumatic, normocephalic, normal inspection Eye exam: Present: normal appearance, PERRL, EOMI. Absent: scleral icterus, conjunctival injection, periorbital swelling ENT exam: Present: normal exam, normal oropharynx, mucous membranes moist Neck exam: Present: normal inspection, full ROM. Absent: tenderness, meningismus, lymphadenopathy Respiratory exam: Present: wheezes. Absent: normal lung sounds bilaterally, respiratory distress, rales, rhonchi, stridor Cardiovascular Exam: Present: regular rate, normal rhythm, normal heart sounds. Absent: systolic murmur, diastolic murmur, rubs, gallop, clicks GI/Abdominal exam: Present: soft, normal bowel sounds. Absent: distended, tenderness, guarding, rebound, rigid Course Vital Signs 04/13/23 04/13/23 04/13/23 11:19 11:38 12:39 Temperature 97.5 F L Pulse Rate 73 67 Respiratory 18 18 Rate Blood Pressure 129/69 O2 Sat by Pulse 96 Oximetry Medical Decision Making - Medical Decision Making Was pt. sent in by a medical professional or institution ([facility], [facility], urgent care, hospital, or [place] [facility] facility...) When possible be specific @ -No Did you speak to anyone other than the patient for history (EMS, parent, family, police, friend...)? What history was obtained from this source @ -No Did you review nursing and triage notes (agree or disagree)? Why? @ -I reviewed and agree with nursing and triage notes Were old charts reviewed (outside hosp., previous admission, EMS record, old EKG, old radiological studies, urgent care reports/EKG's, [place] health care facility records)? Report findings @ -No old charts were reviewed Differential Diagnosis (chest pain, altered mental status, abdominal pain women, abdominal pain men, vaginal bleeding, weakness, fever, dyspnea, syncope, headache, dizziness, GI bleed, back pain, seizure, CVA, palpatations, mental health, musculoskeletal)? @ -URI, pneumonia, COPD, Covid, influenza EKG interpreted by me (3pts min.). @ -None X-rays interpreted by me (1pt min.). @ -X-ray of the chest shows COPD changes CT interpreted by me (1pt min.). @ -None done U/S interpreted by me (1pt. min.). @ -None done What testing was considered but not performed or refused? (CT, X-rays, U/S, labs)? Why? @ -None What meds were considered but not given or refused? Why? @ -None Did you discuss the management of the patient with other professionals (professionals i.e. , PA, [employer], lab, RT, psych nurse, social welfare administrator, payroll representative, teacher, artillery officer, case worker)? Give summary @ -No Was smoking cessation discussed for >3mins.? @ -No Was critical care preformed (if so, how long)? @ -No Were there social determinants of health that impacted care today? How? (Homelessness, low income, unemployed, alcoholism, drug addiction, transportation, low edu. Level, literacy, decrease access to med. care, nursing home, rehab)? @ -No Was there de-escalation of care discussed even if they declined (Discuss DNR or withdrawal of care, Hospice)? DNR status @ -No What co-morbidities impacted this encounter? (DM, HTN, Smoking, COPD, CAD, Cancer, CVA, ARF, Chemo, Hep., AIDS, mental health diagnosis, sleep apnea, morbid obesity)? @ -None Was patient admitted / discharged? Hospital course, mention meds given and route, prescriptions, significant lab abnormalities, going to OR and other pertinent info. @ -Discharge patient has negative viral panel, x-ray does not show definite pneumonia patient does have history of COPD with moderate wheezing has mild COPD exacerbation, tracheobronchitis. Patient was discharged in stable condition return parameters were discussed. Undiagnosed new problem with uncertain prognosis? @ -No Drug Therapy requiring intensive monitoring for toxicity (Heparin, Nitro, Insulin, Cardizem)? @ -No Were any procedures done? @ -No Diagnosis/symptom? @ -COPD exacerbation, tracheobronchitis Acute, or Chronic, or Acute on Chronic? @ -Acute Uncomplicated (without systemic symptoms) or Complicated (systemic symptoms)? @ -Uncomplicated Side effects of treatment? @ -No Exacerbation, Progression, or Severe Exacerbation? @ -No Poses a threat to life or bodily function? How? (Chest pain, USA, OR, pneumonia, PE, COPD, DKA, ARF, appy, cholecystitis, CVA, Diverticulitis, Homicidal, Suicidal, threat to staff... and all critical care pts) @ -No - Lab Data Lab Results 04/13/23 Range/Units 11:34 Influenza Type A (PCR) Not Detected (Not Detectd) Influenza Type B (PCR) Not Detected (Not Detectd) RSV (PCR) Not Detected (Not Detectd) SARS-CoV-2 (PCR) Not Detected (Not Detectd) Disposition Clinical Impression: Tracheobronchitis, COPD exacerbation Disposition: HOME SELF-CARE Condition: Stable Instructions (If sedation given, give patient instructions): Upper Respiratory Infection (ED) Additional Instructions: Please return to the Emergency Department if symptoms worsen or any other concerns. Prescriptions: predniSONE 50 mg PO DAILY #5 tab Azithromycin [Zithromax Z Pack] 0 tab PO DIRECTED #6 tab Is patient prescribed a controlled substance at d/c from ED?: No Referrals: [facility],Clinic [Primary Care Provider] - 1-2 days Time of Disposition: 12:47
--- NOTE | 2023-04-13 12:07 | XR ---
EXAMINATION TYPE: XR chest 2V DATE OF EXAM: 04/13/2023 COMPARISON: NONE TECHNIQUE: PA and lateral views submitted. HISTORY: Shortness of breath FINDINGS: The lungs are clear and there is no pneumothorax, pleural effusion, or focal pneumonia. Heart size normal and no overt failure. Osseous structures demonstrate hypertrophic and degenerative changes of the spine. AC joint arthropathy. Mild hyperinflation. IMPRESSION: 1. No acute process. Correlate for COPD. Underlying chronic interstitial lung disease in the differen tial diagnosis.
[2023-04-13 12:59] VITALS: BP 136/66; PULSE 71; RESP 16
== END 2023-04-13 12:59 | disposition home or self-care (01) ==
LOC: EC 10:49
DX: J40 Bronchitis, not specified as acute or chronic (principal); J44.1 Chronic obstructive pulmonary disease with (acute) exacerbation; E78.5 Hyperlipidemia, unspecified; F17.200 Nicotine dependence, unspecified, uncomplicated; Z79.899 Other long term (current) drug therapy; Z20.822 Contact with and (suspected) exposure to COVID-19
CPT/HCPCS: 71046; 87636; 94640; 99283

== ENCOUNTER 2023-09-15 10:49 | Emergency (ER) | payer OTHER ==
[2023-09-15 11:12] LABS: Basophils # (A) 0.1 k/uL (0-0.2); Basophils % (A) 1 %; Eosinophils # (A) 0.2 k/uL (0-0.7); Eosinophils % (A) 2 %; Lymphocytes # (A) 2.5 k/uL (1.0-4.8); Lymphocytes % (A) 22 %; MCH 35.6 pg (25.0-35.0); MCHC 34.1 g/dL (31.0-37.0); MCV 104.2 fL (80.0-100.0); Macrocytosis Slight; Mean Platelet Volume 7.8; Monocytes # (A) 0.8 k/uL (0-1.0); Monocytes % (A) 7 %; Neutrophils # (A) 7.5 k/uL (1.3-7.7); Neutrophils % (A) 67 %; Platelet Count 338 k/uL (150-450); RBC 4.51 m/uL (4.30-5.90); RDW 13.7 % (11.5-15.5); WBC 11.2 k/uL (3.8-10.6)
[2023-09-15 11:21] LABS: Partial Thromboplastin Time 26.1 sec (22.0-30.0); Prothrombin Time 10.6 sec (10.0-12.5)
[2023-09-15 11:27] LABS: Appearance,Urine Clear (Clear); Bacteria,Urine Rare /hpf; Bilirubin,Urine Negative (Negative); Blood,Urine Negative (Negative); Color,Urine Yellow; Glucose,Urine (UA) Negative (Negative); Ketones,Urine Negative (Negative); Leukocyte Esterase,Urine Large (Negative); Mucus,Urine Rare /hpf; Nitrite,Urine Negative (Negative); PH, Urine 5.5 (5.0-8.0); Protein,Urine Negative (Negative); Specific Gravity,Urine 1.019 (1.001-1.035); Urobilinogen,Urine <2.0 mg/dL (<2.0); WBC,Urine 3 /hpf (0-5)
[2023-09-15 11:39] LABS: ALT 30 U/L (4-49); AST 38 U/L (17-59); African American GFR (CKD) >90 (>60 ml/min/1.73 sqM); Albumin 4.6 g/dL (3.5-5.0); Alkaline Phosphatase 67 U/L (38-126); Anion Gap 7 mmol/L; Blood Urea Nitrogen 14 mg/dL (9-20); Calcium 9.9 mg/dL (8.4-10.2); Carbon Dioxide 30 mmol/L (22-30); Chloride 102 mmol/L (98-107); Glucose 97 mg/dL (74-99); Non-African American GFR(CKD) 87 (>60 ml/min/1.73 sqM); Potassium 4.6 mmol/L (3.5-5.1); Sodium 139 mmol/L (137-145); Total Bilirubin 0.8 mg/dL (0.2-1.3); Total Protein 7.4 g/dL (6.3-8.2)
--- NOTE | 2023-09-15 11:54 | ED ---
General Adult HPI - General Chief complaint: Urogenital Stated complaint: Blood in urine Time Seen by Provider: 09/15/23 11:05 Source: patient, RN notes reviewed Mode of arrival: ambulatory Limitations: no limitations - History of Present Illness Initial comments: Patient is a 77-year-old male presented to the emergency room today with a chief complaint of hematuria. Patient admit that he had some lower abdominal discomfort. States it does not approximate 3 days ago. Patient does admit that his urine was very dark. States has been feeling some pain in the lower abdomen. Patient denies any other complaints or any other symptoms. States not on any blood thinners. Patient denies any recent fever, chills, shortness of breath, chest pain, back pain, constipation or diarrhea, headaches or visual changes, or any other complaints. - Related Data Home Medications Medication Instructions Recorded Confirmed Escitalopram [Lexapro] 10 mg PO W/LUNCH 05/17/22 12/28/22 [place]-3/Dha/Epa/Fish Oil [Fish Oil 1 cap PO DAILY 05/17/22 12/28/22 1,000 mg Softgel] Simvastatin [Zocor] 40 mg PO DAILY 05/17/22 12/28/22 Calcium(Unk) 500 mg PO DAILY 12/28/22 12/28/22 Methotrexate (Unk) 10 mg PO WEEKLY 12/28/22 12/28/22 Vit D3(Unk) 1 tab PO DAILY 12/28/22 12/28/22 predniSONE 5 mg PO DAILY 12/28/22 12/28/22 Previous Rx's Medication Instructions Recorded Azithromycin [Zithromax Z Pack] 0 tab PO DIRECTED #6 tab 04/13/23 predniSONE 50 mg PO DAILY #5 tab 04/13/23 Cephalexin [Keflex] 500 mg PO TID 10 Days #30 cap 09/15/23 Allergies Allergy/AdvReac Type Severity Reaction Status Date / Time No Known Allergies Allergy Verified 04/13/23 11:24 Review of Systems ROS Statement: Those systems with pertinent positive or pertinent negative responses have been documented in the HPI. ROS Other: All systems not noted in ROS Statement are negative. Past Medical History Past Medical History: Cancer, COPD, CVA/TIA, Hyperlipidemia, Prostate Disorder Additional Past Medical History / Comment(s): hx. 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 NODULE REMOVED FROM BACK OF THROAT WITH BX-BENIGN Past Anesthesia/Blood Transfusion Reactions: No Reported Reaction Past Psychological History: No Psychological Hx Reported Smoking Status: Current every day smoker - Past Family History Mother Family Medical History: Cancer Father Family Medical History: Cancer General Exam - General Exam Comments Initial Comments: General: The patient is awake and alert, in no distress, and does not appear acutely ill. Eye: Extra-ocular movements are intact. There is normal conjunctiva bilaterally. No signs of icterus. Ears, nose, mouth and throat: There are moist mucous membranes and no oral lesions. Neck: The neck is supple, there is no tenderness or JVD. Cardiovascular: There is a regular rate and rhythm. Respiratory: respirations are non-labored Gastrointestinal: Abdomen soft on palpation. Minimal discomfort to lower abdomen on palpation. No rebound, guarding or CVA tenderness. Musculoskeletal: Normal ROM, no tenderness. Neurological: A&O x 3. CN II-XII intact, There are no obvious motor or sensory deficits. Coordination appears grossly intact. Speech is normal. Skin: Skin is warm and dry and no rashes or lesions are noted. Psychiatric: Cooperative, appropriate mood & affect, normal judgment. Limitations: no limitations Course Vital Signs 09/15/23 10:50 Temperature 98.6 F Pulse Rate 79 Respiratory 16 Rate Blood Pressure 145/79 O2 Sat by Pulse 95 Oximetry Medical Decision Making - Medical Decision Making History was obtained from patient/Nurse/ __ Initial assessment and chief complaint: Hematuria, lower abdominal discomfort Chronic conditions affecting care: Hyperlipidemia, CVA, enlarged prostate, skin cancer Social determinants affecting care: None Differential diagnosis included, but not limited to: Kidney stone, UTI, urinary mass, gastroenteritis, colitis, diverticulitis 77-year-old male presented to the emergency room today with a chief complaint of hematuria and some lower abdominal discomfort. Patient does note symptoms started 3 days ago. Denies any fever. Patient did have blood work obtained. 11.2 white count. Remaining blood work unremarkable. Patient urinalysis shows 3 white cells with leuk esterase and mild bacteria. Patient did have a CT of the abdomen pelvis obtained which showed prominent prostate, and bladder wall thickening. Results were discussed with the patient. Is resting comfortably. Abdomen soft on palpation. Was discussed about starting antibiotics to cover for infection. Advised patient to follow with his urologist. He states he does see somebody in [place]. Signs symptoms and reason for concern to return here to the emergency room discussed in detail. Advised to return for any fever or increase or worsening symptoms. A prescription for Keflex sent to the pharmacy. Urine culture is pending. Patient states understanding and is in agreement with this plan. - Lab Data Result diagrams: 09/15/23 11:08 09/15/23 11:08 Lab Results 09/15/23 09/15/23 09/15/23 Range/Units 11:08 11:08 11:08 WBC 11.2 H (3.8-10.6) k/uL RBC 4.51 (4.30-5.90) m/uL Hgb 16.0 (13.0-17.5) gm/dL Hct 47.0 (39.0-53.0) % MCV 104.2 H (80.0-100.0) fL MCH 35.6 H (25.0-35.0) pg MCHC 34.1 (31.0-37.0) g/dL RDW 13.7 (11.5-15.5) % Plt Count 338 (150-450) k/uL MPV 7.8 Neutrophils % 67 % Lymphocytes % 22 % Monocytes % 7 % Eosinophils % 2 % Basophils % 1 % Neutrophils # 7.5 (1.3-7.7) k/uL Lymphocytes # 2.5 (1.0-4.8) k/uL Monocytes # 0.8 (0-1.0) k/uL Eosinophils # 0.2 (0-0.7) k/uL Basophils # 0.1 (0-0.2) k/uL Macrocytosis Slight PT 10.6 (10.0-12.5) sec INR 1.0 (<1.2) APTT 26.1 (22.0-30.0) sec Sodium (137-145) mmol/L Potassium (3.5-5.1) mmol/L Chloride (98-107) mmol/L Carbon Dioxide (22-30) mmol/L Anion Gap mmol/L BUN (9-20) mg/dL Creatinine (0.66-1.25) mg/dL Est GFR (CKD-EPI)AfAm (>60 ml/min/1.73 sqM) Est GFR (CKD-EPI)NonAf (>60 ml/min/1.73 sqM) Glucose (74-99) mg/dL Calcium (8.4-10.2) mg/dL Total Bilirubin (0.2-1.3) mg/dL AST (17-59) U/L ALT (4-49) U/L Alkaline Phosphatase (38-126) U/L Total Protein (6.3-8.2) g/dL Albumin (3.5-5.0) g/dL Urine Color Yellow Urine Appearance Clear (Clear) Urine pH 5.5 (5.0-8.0) Ur Specific [place] 1.019 (1.001-1.035) Urine Protein Negative (Negative) Urine Glucose (UA) Negative (Negative) Urine Ketones Negative (Negative) Urine Blood Negative (Negative) Urine Nitrite Negative (Negative) Urine Bilirubin Negative (Negative) Urine Urobilinogen <2.0 (<2.0) mg/dL Ur Leukocyte Esterase Large H (Negative) Urine WBC 3 (0-5) /hpf Urine Bacteria Rare H (None) /hpf Urine Mucus Rare H (None) /hpf 09/15/23 Range/Units 11:08 WBC (3.8-10.6) k/uL RBC (4.30-5.90) m/uL Hgb (13.0-17.5) gm/dL Hct (39.0-53.0) % MCV (80.0-100.0) fL MCH (25.0-35.0) pg MCHC (31.0-37.0) g/dL RDW (11.5-15.5) % Plt Count (150-450) k/uL MPV Neutrophils % % Lymphocytes % % Monocytes % % Eosinophils % % Basophils % % Neutrophils # (1.3-7.7) k/uL Lymphocytes # (1.0-4.8) k/uL Monocytes # (0-1.0) k/uL Eosinophils # (0-0.7) k/uL Basophils # (0-0.2) k/uL Macrocytosis PT (10.0-12.5) sec INR (<1.2) APTT (22.0-30.0) sec Sodium 139 (137-145) mmol/L Potassium 4.6 (3.5-5.1) mmol/L Chloride 102 (98-107) mmol/L Carbon Dioxide 30 (22-30) mmol/L Anion Gap 7 mmol/L BUN 14 (9-20) mg/dL Creatinine 0.81 (0.66-1.25) mg/dL Est GFR (CKD-EPI)AfAm >90 (>60 ml/min/1.73 sqM) Est GFR (CKD-EPI)NonAf 87 (>60 ml/min/1.73 sqM) Glucose 97 (74-99) mg/dL Calcium 9.9 (8.4-10.2) mg/dL Total Bilirubin 0.8 (0.2-1.3) mg/dL AST 38 (17-59) U/L ALT 30 (4-49) U/L Alkaline Phosphatase 67 (38-126) U/L Total Protein 7.4 (6.3-8.2) g/dL Albumin 4.6 (3.5-5.0) g/dL Urine Color Urine Appearance (Clear) Urine pH (5.0-8.0) Ur Specific [place] (1.001-1.035) Urine Protein (Negative) Urine Glucose (UA) (Negative) Urine Ketones (Negative) Urine Blood (Negative) Urine Nitrite (Negative) Urine Bilirubin (Negative) Urine Urobilinogen (<2.0) mg/dL Ur Leukocyte Esterase (Negative) Urine WBC (0-5) /hpf Urine Bacteria (None) /hpf Urine Mucus (None) /hpf Disposition Clinical Impression: Urinary tract infection, Hematuria Disposition: HOME SELF-CARE Condition: Good Instructions (If sedation given, give patient instructions): Urinary Tract Infection in Men (ED) Additional Instructions: Please use medication as discussed. Please follow-up with family doctor/urologist in the next 2 days. Please return to emergency room if the s ymptoms increase or worsen or for any other concerns. Prescriptions: Cephalexin [Keflex] 500 mg PO TID 10 Days #30 cap Is patient prescribed a controlled substance at d/c from ED?: No Referrals: Shira Loja [facility] [Primary Care Provider] - 1-2 days Time of Disposition: 12:45
--- NOTE | 2023-09-15 12:31 | CT ---
EXAMINATION TYPE: CT abdomen pelvis w con DATE OF EXAM: 09/15/2023 COMPARISON: None INDICATION: Blood clot in urine DLP: 85 mGycm, Automated exposure control for dose reduction was used. CONTRAST: 100 mL of Isovue 300. Study performed without Oral Contrast TECHNIQUE: Axial images were obtained from above the diaphragm to the pubic rami in the axial plane a t 5 mm thick sections. Reconstructed images are reviewed on the computer in the coronal plane. FINDINGS: Limited CT sections are obtained the lung bases. The lung bases are clear. There is a small hiatal hernia present CT ABDOMEN: Liver: Hepatic cyst present. Spleen: Normal Pancreas: Normal Adrenal glands: The adrenal glands are normal. Gallbladder: Normal Kidneys: Right kidney is not identified. Left kidney appears hypertrophied. No masses are evident. No hydronephrosis is present. No cysts are present. Delayed images were obtained through the kidney, which remain unremarkable. Aorta: Vascular calcification is within the aorta. Inferior vena cava: Normal. CT PELVIS: Loops of bowel within the abdomen and pelvis are normal. The study is without oral contrast limit ing bowel evaluation. Appendix: Normal as visualized. Urinary bladder: Decompressed. Some diffuse wall thickening is not excluded. Genitourinary structures: Prostate is very prominent. Osseous structures: No suspicious lytic or sclerotic lesions. Scoliosis is present. Degenerative disc changes are within the lumbar spine. Vacuum disc phenomenon is within the lumbar spine IMPRESSION: 1. Prominent prostate. 2. Decompressed urinary bladder. Some diffuse wall thickening is not excluded.
[2023-09-15 13:35] VITALS: BP 121/70; PULSE 72; RESP 18; TEMP 97.6
== END 2023-09-15 13:20 | disposition home or self-care (01) ==
LOC: EC 10:49
DX: N39.0 Urinary tract infection, site not specified (principal); N40.1 Benign prostatic hyperplasia with lower urinary tract symptoms; N32.89 Other specified disorders of bladder; J44.9 Chronic obstructive pulmonary disease, unspecified; E78.5 Hyperlipidemia, unspecified; F17.200 Nicotine dependence, unspecified, uncomplicated; Z79.52 Long term (current) use of systemic steroids; Z79.899 Other long term (current) drug therapy; Z86.73 Personal history of transient ischemic attack (TIA), and cerebral infarction without residual deficits
CPT/HCPCS: 36415; 80053; 85025; 85610; 85730; 81001; 87086; 74177; 99284; Q9967

== ENCOUNTER 2024-12-07 17:11 | Emergency (ER) | payer OTHER ==
[2024-12-07 17:16] VITALS: PULSE 67; RESP 16; TEMP 99.3
[2024-12-07 17:37] VITALS: BP 128/63
--- NOTE | 2024-12-07 17:57 | ED ---
General Adult HPI - General Chief complaint: Syncope Stated complaint: Syncope Time Seen by Provider: 12/07/24 17:23 Source: patient, EMS Mode of arrival: EMS Limitations: no limitations - History of Present Illness Initial comments: Dictation was produced using [email or web address] dictation software. please excuse any grammatical, word or spelling errors. Chief Complaint: 79-year-old male presents to the emergency department for exertional weakness History of Present Illness: Patient 79-year-old male he was walking his dog. In the middle of his walk started to feel weak. States that he was so weak and dizzy that he had to sit down. Patient waited for some time trying to contact his for help however he got no response. Shortly after he tried to stand up and was able to walk really slowly home. He finally made to home with the help of his neighbor. Patient denies any symptoms at the bedside. Denies any significant comorbidities. Denies any pain. The ROS documented in this emergency department record has been reviewed and confirmed by me. Those systems with pertinent positive or negative responses have been documented in the HPI. All other systems are other negative and/or noncontributory. - Related Data Home Medications Medication Instructions Recorded Confirmed Escitalopram [Lexapro] 10 mg PO W/LUNCH 05/17/22 12/28/22 [place]-3/Dha/Epa/Fish Oil [Fish Oil 1 cap PO DAILY 05/17/22 12/28/22 1,000 mg Softgel] Simvastatin [Zocor] 40 mg PO DAILY 05/17/22 12/28/22 Calcium(Unk) 500 mg PO DAILY 12/28/22 12/28/22 Methotrexate (Unk) 10 mg PO WEEKLY 12/28/22 12/28/22 Vit D3(Unk) 1 tab PO DAILY 12/28/22 12/28/22 predniSONE 5 mg PO DAILY 12/28/22 12/28/22 Previous Rx's Medication Instructions Recorded Azithromycin [Zithromax Z Pack] 0 tab PO DIRECTED #6 tab 04/13/23 predniSONE 50 mg PO DAILY #5 tab 04/13/23 Cephalexin [Keflex] 500 mg PO TID 10 Days #30 cap 09/15/23 Allergies Allergy/AdvReac Type Severity Reaction Status Date / Time No Known Allergies Allergy Verified 04/13/23 11:24 Review of Systems ROS Statement: Those systems with pertinent positive or pertinent negative responses have been documented in the HPI. ROS Other: All systems not noted in ROS Statement are negative. Past Medical History Past Medical History: Cancer, COPD, CVA/TIA, Hyperlipidemia, Prostate Disorder Additional Past Medical History / Comment(s): hx. 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 NODULE REMOVED FROM BACK OF THROAT WITH BX-BENIGN Past Anesthesia/Blood Transfusion Reactions: No Reported Reaction Past Psychological History: No Psychological Hx Reported Smoking Status: Current every day smoker - Past Family History Mother Family Medical History: Cancer Father Family Medical History: Cancer General Exam - General Exam Comments Initial Comments: PHYSICAL EXAM: General Impression: Alert and oriented x3, not in acute distress HEENT: Normocephalic atraumatic, extra-ocular movements intact, pupils equal and reactive to light bilaterally, mucous membranes moist. Cardiovascular: Heart regular rate and rhythm Chest: Able to complete full sentences, no retractions, no tachypnea Abdomen: abdomen soft, non-tender, non-distended, no organomegaly Musculoskeletal: Pulses present and equal in all extremities, no peripheral edema Motor: no focal deficits noted Neurological: CN II-XII grossly intact, no focal motor or sensory deficits noted Skin: Intact with no visualized rashes Psych: Normal affect and mood Limitations: no limitations Course Vital Signs 12/07/24 12/07/24 17:12 17:32 Temperature 99.3 F Pulse Rate 67 Pulse Rate [ 69 Left Sitting] Pulse Rate [ 73 Left Standing] Pulse Rate [ 67 Left Supine Radial] Pulse Rate [ 67 Right Supine] Respiratory 16 Rate Blood Pressure 130/55 Blood Pressure 128/63 [Right Arm Sitting] Blood Pressure 120/65 [Right Arm Standing] Blood Pressure 126/61 [Right Arm Supine] O2 Sat by Pulse 96 Oximetry Medical Decision Making - Medical Decision Making Was pt. sent in by a medical professional or institution (, PA, MALT SPECIFICATIONS CONTROL ASSISTANT, urgent care, hospital, or alf...) When possible be specific @ -No Did you speak to anyone other than the patient for history (EMS, parent, family, police, friend...)? What history was obtained from this source @ -No Did you review nursing and triage notes (agree or disagree)? Why? @ -I reviewed and agree with nursing and triage notes Were old charts reviewed (outside hosp., previous admission, EMS record, old EKG, old radiological studies, urgent care reports/EKG's, alf records)? Report findings @ -No old charts were reviewed Differential Diagnosis (chest pain, altered mental status, abdominal pain women, abdominal pain men, vaginal bleeding, musculoskeletal, weakness, fever, dyspnea, syncope, headache, dizziness, GI bleed, back pain, seizure, CVA, palpatations, mental health)? @ -Differential Weakness: Hypoglycemia, shock, sepsis, hyponatremia, anemia, infection, ME, ETOH, adverse medicine reaction, overdose, stroke, this is not meant to be an all-inclusive l ist. EKG interpreted by me (3pts min.). @ -See above X-rays interpreted by me (1pt min.). @ -Chest x-ray is nonacute CT interpreted by me (1pt min.). @ -None done U/S interpreted by me (1pt. min.). @ -None done What testing was considered but not performed or refused? (CT, X-rays, U/S, labs)? Why? @ -None What meds were considered but not given or refused? Why? @ -None Was smoking cessation discussed for >3mins.? @ -No Were there social determinants of health that impacted care today? How? (Homelessness, low income, unemployed, alcoholism, drug addiction, transportation, low edu. Level, literacy, decrease access to med. care, [place] [facility], rehab)? @ -No Was there de-escalation of care discussed even if they declined (Discuss DNR or withdrawal of care, Hospice)? DNR status @ -No What co-morbidities impacted this encounter? (DM, HTN, Smoking, COPD, CAD, Cancer, CVA, ARF, Chemo, Hep., AIDS, mental health diagnosis, sleep apnea, morbid obesity)? @ -Polymyalgia rheumatica Was patient admitted / discharged? Hospital course, mention meds given and route, prescriptions, significant lab abnormalities, going to OR and other pertinent info. @ -79-year-old male presents emergency department with episode of weakness while walking his dog. Patient has any cardiac comorbidities. He has history of polymyalgia rheumatica. Vital signs stable. Laboratory is unremarkable. EKG is negative. Imaging studies are negative. Patient had slight hyperglycemia. Repeat blood glucose was 148. Patient states he feels well ate a sandwich and drank some pop. He was ambulated in the ER with no c omplications. Patient is stable and will be discharged advised follow-up with primary care doctor. Did you discuss the management of the patient with other professionals (professionals i.e. , PA, MALT SPECIFICATIONS CONTROL ASSISTANT, lab, RT, psych nurse, social media assistant, field crops harvest machine operator, teacher, armed custom protection officer, adult protective caseworker)? Give summary @ -No Was critical care preformed (if so, how long)? @ -No Undiagnosed new problem with uncertain prognosis? @ -No Drug Therapy requiring intensive monitoring for toxicity (Heparin, Nitro, Insuli n, Cardizem)? @ -No Were any procedures done? @ -No Diagnosis/symptom? Acute, or Chronic, or Acute on Chronic? Uncomplicated (without systemic symptoms) or Complicated (systemic symptoms)? @ -Weakness Side effects of treatment? @ -No Exacerbation, Progression, or Severe Exacerbation? @ -No Poses a threat to life or bodily function? How? (Chest pain, [place], ME, pneumonia, PE, COPD, DKA, ARF, appy, cholecystitis, CVA, Diverticulitis, Homicidal, Suicidal, threat to staff... and all critical care pts) @ -No - Lab Data Result diagrams: 12/07/24 18:04 12/07/24 18:04 Lab Results 12/07/24 12/07/24 12/07/24 Range/Units 18:04 18:04 18:04 WBC 10.64 H (4.50-10.00) 10*3/uL RBC 3.94 L (4.40-5.60) 10*6/uL Hgb 14.1 (13.0-17.0) g/dL Hct 39.5 L (39.6-50.0) % MCV 100.3 H (80.0-97.0) fL MCH 35.8 H (27.0-32.0) pg MCHC 35.7 (32.0-37.0) g/dL Plt Count 247 (140-440) 10*3/uL MPV 11.2 (9.5-12.2) fL Immature Gran % (Auto) 0.3 % Neutrophils % 62.3 % Lymphocytes % 25.1 % Monocytes % 9.8 % Eosinophils % 2.0 % Basophils % 0.5 % Immature Gran # 0.03 (0.00-0.04) 10*3/uL Neutrophils # 6.64 (1.80-7.70) 10*3/uL Lymphocytes # 2.67 (0.90-5.00) 10*3/uL Monocytes # 1.04 H (0.20-1.00) 10*3/uL Eosinophils # 0.21 (0.04-0.35) 10*3/uL Basophils # 0.05 (0.00-0.10) 10*3/uL Manual Slide Review Performed Immature Plt Fraction 5.5 (1.1-6.1) % PT 11.1 (10.0-12.5) sec INR 1.0 (<1.2) APTT 22.0 (22.0-30.0) sec Sodium 137 (137-145) mmol/L Potassium 4.8 (3.5-5.1) mmol/L Chloride 105 (98-107) mmol/L Carbon Dioxide 25 (22-30) mmol/L Anion Gap 7 mmol/L BUN 16 (9-20) mg/dL Creatinine 0.64 L (0.66-1.25) mg/dL Est GFR (CKD-EPI)AfAm >90 (>60 ml/min/1.73 sqM) Est GFR (CKD-EPI)NonAf >90 (>60 ml/min/1.73 sqM) Glucose 66 L (74-99) mg/dL POC Glucose (mg/dL) (70-110) mg/dL POC Glu Management Advisor ID Plasma Lactic Acid Kem (0.7-2.0) mmol/L Calcium 8.6 (8.4-10.2) mg/dL Ionized Calcium Stas 4.5 (4.5-5.3) mg/dL Magnesium 1.8 (1.6-2.3) mg/dL Total Bilirubin 0.9 (0.2-1.3) mg/dL AST 41 (17-59) U/L ALT 28 (4-49) U/L Alkaline Phosphatase 50 (38-126) U/L Troponin I (0.000-0.034) ng/mL Total Protein 6.2 L (6.3-8.2) g/dL Albumin 3.7 (3.5-5.0) g/dL 12/07/24 12/07/24 12/07/24 Range/Units 18:04 18:04 19:57 WBC (4.50-10.00) 10*3/uL RBC (4.40-5.60) 10*6/uL Hgb (13.0-17.0) g/dL Hct (39.6-50.0) % MCV (80.0-97.0) fL MCH (27.0-32.0) pg MCHC (32.0-37.0) g/dL Plt Count (140-440) 10*3/uL MPV (9.5-12.2) fL Immature Gran % (Auto) % Neutrophils % % Lymphocytes % % Monocytes % % Eosinophils % % Basophils % % Immature Gran # (0.00-0.04) 10*3/uL Neutrophils # (1.80-7.70) 10*3/uL Lymphocytes # (0.90-5.00) 10*3/uL Monocytes # (0.20-1.00) 10*3/uL Eosinophils # (0.04-0.35) 10*3/uL Basophils # (0.00-0.10) 10*3/uL Manual Slide Review Immature Plt Fraction (1.1-6.1) % PT (10.0-12.5) sec INR (<1.2) APTT (22.0-30.0) sec Sodium (137-145) mmol/L Potassium (3.5-5.1) mmol/L Chloride (98-107) mmol/L Carbon Dioxide (22-30) mmol/L Anion Gap mmol/L BUN (9-20) mg/dL Creatinine (0.66-1.25) mg/dL Est GFR (CKD-EPI)AfAm (>60 ml/min/1.73 sqM) Est GFR (CKD-EPI)NonAf (>60 ml/min/1.73 sqM) Glucose (74-99) mg/dL POC Glucose (mg/dL) 148 H (70-110) mg/dL POC Glu Management Advisor ID [facility] Plasma Lactic Acid Kem 1.6 (0.7-2.0) mmol/L Calcium (8.4-10.2) mg/dL Ionized Calcium Stas (4.5-5.3) mg/dL Magnesium (1.6-2.3) mg/dL Total Bilirubin (0.2-1.3) mg/dL AST (17-59) U/L ALT (4-49) U/L Alkaline Phosphatase (38-126) U/L Troponin I <0.012 (0.000-0.034) ng/mL Total Protein (6.3-8.2) g/dL Albumin (3.5-5.0) g/dL Disposition Clinical Impression: Weakness Disposition: HOME SELF-CARE Condition: Fair Instructions (If sedation given, give patient instructions): Weakness (ED) Is patient prescribed a controlled substance at d/c from ED?: No Referrals: James Meeks DO [Primary Care Provider] - 1-2 days Time of Disposition: 20:30
[2024-12-07 18:13] LABS: Basophils # (A) 0.05 10*3/uL (0.00-0.10); Basophils % (A) 0.5 %; Eosinophils # (A) 0.21 10*3/uL (0.04-0.35); HCT 39.5 % (39.6-50.0); HGB 14.1 g/dL (13.0-17.0); Immature Platelet Fraction 5.5 % (1.1-6.1); Lymphocytes # (A) 2.67 10*3/uL (0.90-5.00); Lymphocytes % (A) 25.1 %; MCH 35.8 pg (27.0-32.0); MCHC 35.7 g/dL (32.0-37.0); MCV 100.3 fL (80.0-97.0); Mean Platelet Volume 11.2 fL (9.5-12.2); Monocytes # (A) 1.04 10*3/uL (0.20-1.00); Monocytes % (A) 9.8 %; Neutrophils # (A) 6.64 10*3/uL (1.80-7.70); Neutrophils % (A) 62.3 %; RBC 3.94 10*6/uL (4.40-5.60); RDW 13.8 % (11.5-14.5); WBC 10.64 10*3/uL (4.50-10.00)
[2024-12-07 18:31] LABS: Prothrombin Time 11.1 sec (10.0-12.5)
[2024-12-07 18:44] LABS: Ionized Calcium 4.5 mg/dL (4.5-5.3)
[2024-12-07 18:56] LABS: Platelet Count 247 10*3/uL (140-440)
[2024-12-07 18:57] LABS: ALT 28 U/L (4-49); African American GFR (CKD) >90 (>60 ml/min/1.73 sqM); Albumin 3.7 g/dL (3.5-5.0); Anion Gap 7 mmol/L; Blood Urea Nitrogen 16 mg/dL (9-20); Calcium 8.6 mg/dL (8.4-10.2); Carbon Dioxide 25 mmol/L (22-30); Chloride 105 mmol/L (98-107); Glucose 66 mg/dL (74-99); Non-African American GFR(CKD) >90 (>60 ml/min/1.73 sqM); Sodium 137 mmol/L (137-145); Total Bilirubin 0.9 mg/dL (0.2-1.3); Total Protein 6.2 g/dL (6.3-8.2)
[2024-12-07 19:09] LABS: AST 41 U/L (17-59); Alkaline Phosphatase 50 U/L (38-126); Magnesium 1.8 mg/dL (1.6-2.3); Potassium 4.8 mmol/L (3.5-5.1)
--- NOTE | 2024-12-07 19:35 | XR ---
EXAMINATION TYPE: XR chest 2V DATE OF EXAM: 12/07/2024 7:23 PM COMPARISON: 04/13/2023 CLINICAL INDICATION: Male, 79 years old with history of exertional weakness: Shortness of breath TECHNIQUE: XR chest 2V views of the chest are obtained. FINDINGS: Scattered senescent parenchymal changes noted. Hyperinflation compatible with COPD. No evidence for infiltrate. No evidence for atelectasis. Heart size is stable. Mediastinal structures are stable and grossly unremarkable. No evidence for hilar prominence. Degenerative changes dorsal spine. IMPRESSION: 1. No evidence for acute pulmonary disease. [facility], , 12/07/2024 7:33 PM
[2024-12-07 19:59] LABS: Glucose,Whole Blood 148 mg/dL (70-110)
[2024-12-07] MEDS: DEXTROSE 50% SYRINGE 50 ML IVP STA (20:05)
== END 2024-12-07 21:03 | disposition home or self-care (01) ==
LOC: EC 17:11
DX: R53.1 Weakness (principal); R73.9 Hyperglycemia, unspecified; M35.3 Polymyalgia rheumatica; F17.200 Nicotine dependence, unspecified, uncomplicated; Z86.73 Personal history of transient ischemic attack (TIA), and cerebral infarction without residual deficits
CPT/HCPCS: 36415; 71046; 80053; 82330; 83605; 83735; 84484; 85025; 85610; 85730; 99284